=== PATIENT | male | born 1940 | race Caucasian/White ===

== ENCOUNTER 2021-01-14 09:15 | Outpatient (REF) | payer MEDICARE, SELFPAY ==
[2021-01-14 10:28] LABS: Uric Acid 8.3 mg/dL (3.4-7.0)
== END 2021-01-14 09:16 | disposition home or self-care (01) ==
LOC: HO.LAB 09:15
PROVIDERS: PCP Internal Medicine; Visit Provider Internal Medicine
DX: M1A.9XX0 Chronic gout, unspecified, without tophus (tophi) (principal)
CPT/HCPCS: 36415; 84550

== ENCOUNTER 2021-06-02 09:50 | Outpatient (REF) | payer MEDICARE, SELFPAY ==
[2021-06-02 10:04] LABS: MANUAL DIFF FLAG NO
[2021-06-02 10:15] LABS: Basophils Percent Auto 0.5 % (0-2); Eosinophils Absolute Auto 0.2 X10*3/uL (0.0-0.4); Eosinophils Percent Auto 3.6 % (0-4); Hematocrit 45.2 % (42.0-52.0); Hemoglobin 14.7 g/dl (14.0-18.0); Imm Gran Abs Auto 0.01 X10*3/uL (0.00-0.03); Imm Gran Pct Auto 0.2 % (0.0-0.4); Lymphocytes Percent Auto 49.1 % (20-40); Mean Corpuscular HGB Conc 32.5 g/dl (31.0-36.0); Mean Corpuscular Hemoglobin 29.5 pg (27.0-33.0); Mean Corpuscular Volume 90.6 fL (80.0-98.0); Mean Platelet Volume 10.4 fL (9.4-12.4); Monocytes Absolute Auto 0.7 X10*3/uL (0.1-1.2); Monocytes Percent Auto 11.9 % (2-11); Neutrophils Absolute Auto 2.1 x10*3/uL (2.0-8.3); Neutrophils Percent Auto 34.7 % (45-73); Platelet Count 295 X10*3/uL (160-400); Red Blood Count 4.99 X10*6/uL (4.60-5.80); Red Cell Distribution Width 14.1 % (11.0-16.0); White Blood Count 6.1 X10*3/uL (4.8-10.8)
[2021-06-02 11:19] LABS: Folate 10.4 ng/mL (> or = 4.0); Vitamin B12 960 pg/mL (200-900)
[2021-06-02 11:30] LABS: Alanine Aminotransferase 17 U/L (0-40); Albumin Level 4.3 g/dL (3.5-5.0); Alkaline Phosphatase 80 U/L (39-117); Anion Gap 14 (12-20); Aspartate Amino Transferase 20 U/L (5-37); Bilirubin Total 0.5 mg/dL (0.0-1.0); Blood Urea Nitrogen 25 mg/dL (9-16); Calcium 9.8 mg/dL (8.4-10.2); Carbon Dioxide 24 mmol/L (22-29); Chloride 110 mmol/L (96-108); Cholesterol 179 mg/dL; Estimated Glomerular Filt Rate > 60; Glucose Random 100 mg/dL (60-115); HDL Cholesterol 49 mg/dL; LDL Cholesterol Calculated 110 mg/dl; Potassium 5.5 mmol/L (3.3-5.1); Sodium 142 mmol/L (135-145); Total Protein 7.7 g/dL (6.5-8.0); Triglycerides 101 mg/dL
[2021-06-02 11:42] LABS: Uric Acid 8.5 mg/dL (3.4-7.0)
[2021-06-02 12:02] LABS: Free T4 (Free Thyroxine) 1.08 ng/dL (0.71-1.85); Thyroid Stimulating Hormone 2.17 uIU/mL (0.32-4.0)
== END 2021-06-02 09:51 | disposition home or self-care (01) ==
LOC: HO.LAB 09:50
PROVIDERS: PCP Internal Medicine; Visit Provider Internal Medicine
DX: E03.9 Hypothyroidism, unspecified (principal); K21.9 Gastro-esophageal reflux disease without esophagitis; I10 Essential (primary) hypertension; E78.00 Pure hypercholesterolemia, unspecified
CPT/HCPCS: 36415; 80053; 80061; 82607; 82746; 84439; 84443; 84550; 85025

== ENCOUNTER 2021-06-30 09:42 | Outpatient (REF) | payer MEDICARE, SELFPAY ==
[2021-06-30 11:07] LABS: Anion Gap 11 (12-20); Blood Urea Nitrogen 21 mg/dL (9-16); Calcium 9.7 mg/dL (8.4-10.2); Carbon Dioxide 26 mmol/L (22-29); Chloride 109 mmol/L (96-108); Estimated Glomerular Filt Rate 51; Glucose Random 93 mg/dL (60-115); Sodium 141 mmol/L (135-145)
== END 2021-06-30 09:43 | disposition home or self-care (01) ==
LOC: HO.LAB 09:42
PROVIDERS: PCP Internal Medicine; Visit Provider Internal Medicine
DX: E87.5 Hyperkalemia (principal)
CPT/HCPCS: 36415; 80048

== ENCOUNTER 2022-05-12 10:24 | Outpatient (REF) | payer MEDICARE, SELFPAY ==
[2022-05-12 10:41] LABS: MANUAL DIFF FLAG NO
[2022-05-12 10:46] LABS: Basophils Percent Auto 0.6 % (0-2); Eosinophils Absolute Auto 0.2 X10*3/uL (0.0-0.4); Eosinophils Percent Auto 2.9 % (0-4); Hematocrit 44.3 % (42.0-52.0); Hemoglobin 14.3 g/dl (14.0-18.0); Imm Gran Abs Auto 0.02 X10*3/uL (0.00-0.03); Imm Gran Pct Auto 0.3 % (0.0-0.4); Lymphocytes Absolute Auto 2.6 X10*3/uL (1.2-4.9); Lymphocytes Percent Auto 39.9 % (20-40); Mean Corpuscular HGB Conc 32.3 g/dl (31.0-36.0); Mean Corpuscular Hemoglobin 29.1 pg (27.0-33.0); Mean Platelet Volume 10.1 fL (9.4-12.4); Monocytes Absolute Auto 0.8 X10*3/uL (0.1-1.2); Monocytes Percent Auto 12.3 % (2-11); Neutrophils Absolute Auto 2.9 x10*3/uL (2.0-8.3); Platelet Count 278 X10*3/uL (160-400); Red Blood Count 4.92 X10*6/uL (4.60-5.80); Red Cell Distribution Width 13.7 % (11.0-16.0); White Blood Count 6.5 X10*3/uL (4.8-10.8)
[2022-05-12 11:18] LABS: Alanine Aminotransferase 14 U/L (0-40); Albumin Level 3.9 g/dL (3.5-5.0); Alkaline Phosphatase 77 U/L (39-117); Anion Gap 11 (12-20); Aspartate Amino Transferase 22 U/L (5-37); Bilirubin Total 0.4 mg/dL (0.0-1.0); Blood Urea Nitrogen 18 mg/dL (9-16); Calcium 9.3 mg/dL (8.4-10.2); Carbon Dioxide 27 mmol/L (22-29); Chloride 107 mmol/L (96-108); Cholesterol 180 mg/dL; Estimated Glomerular Filt Rate 44; Glucose Random 112 mg/dL (60-115); HDL Cholesterol 49 mg/dL; LDL Cholesterol Calculated 101 mg/dl; Potassium 5.1 mmol/L (3.3-5.1); Sodium 140 mmol/L (135-145); Total Protein 7.5 g/dL (6.5-8.0); Triglycerides 151 mg/dL; Uric Acid 7.4 mg/dL (3.4-7.0)
[2022-05-12 11:22] LABS: Estimated Average Glucose 108 mg/dL; Hemoglobin A1c % 5.4 %
[2022-05-12 11:32] LABS: Free T4 (Free Thyroxine) 1.43 ng/dL (0.71-1.85)
[2022-05-12 12:01] LABS: Vitamin B12 1524 pg/mL (200-900)
[2022-05-12 12:06] LABS: Folate 9.3 ng/mL (> or = 4.0)
[2022-05-12 12:23] LABS: Appearance Urine Clear; Color Urine Yellow; Glucose Urine UA Negative (Negative); Leukocyte Esterase Urine Negative (Negative); Nitrite Urine Negative (Negative); PH 5.5 (5.0-9.0); Specific Gravity - Urine 1.015 (1.005-1.025); Urine Blood Negative (Negative); Urine Ketones Negative (Negative); Urine Protein Negative (Neg-Trace)
[2022-05-12 12:26] LABS: Bacteria Urine None Seen (None Seen); Hyaline Casts Urine 0-2 /LPF (0-2); RBC Urine 0-2 /HPF (0-2); Squamous Epithelial Cell Urine 0-2 /HPF (0-2); WBC Urine 0-5 /HPF (0-5)
== END 2022-05-12 10:25 | disposition home or self-care (01) ==
LOC: HO.LAB 10:24
PROVIDERS: PCP Internal Medicine; Visit Provider Internal Medicine
DX: I10 Essential (primary) hypertension (principal); M1A.9XX0 Chronic gout, unspecified, without tophus (tophi); E03.9 Hypothyroidism, unspecified; E78.00 Pure hypercholesterolemia, unspecified; R73.01 Impaired fasting glucose
CPT/HCPCS: 36415; 80053; 80061; 81001; 82607; 82746; 83036; 84439; 84443; 84550; 85025

== ENCOUNTER 2022-12-20 10:16 | Outpatient (REF) | payer MEDICARE, SELFPAY ==
[2022-12-20 11:37] LABS: Alanine Aminotransferase 11 U/L (0-40); Albumin Level 3.6 g/dL (3.5-5.0); Alkaline Phosphatase 68 U/L (39-117); Anion Gap 10 (12-20); Aspartate Amino Transferase 16 U/L (5-37); Bilirubin Total 0.6 mg/dL (0.0-1.0); Blood Urea Nitrogen 23 mg/dL (9-16); Calcium 8.9 mg/dL (8.4-10.2); Carbon Dioxide 24 mmol/L (22-29); Chloride 111 mmol/L (96-108); Estimated Glomerular Filt Rate 50; Glucose Random 105 mg/dL (60-115); Potassium 5.1 mmol/L (3.3-5.1); Sodium 140 mmol/L (135-145); Total Protein 6.7 g/dL (6.5-8.0)
== END 2022-12-20 10:17 | disposition home or self-care (01) ==
LOC: HO.LAB 10:16
PROVIDERS: PCP Internal Medicine; Visit Provider Internal Medicine
DX: N28.9 Disorder of kidney and ureter, unspecified (principal)
CPT/HCPCS: 36415; 80053

== ENCOUNTER 2023-04-01 14:50 | Outpatient (AMB) | payer MEDICARE, SELFPAY ==
[2023-04-01 14:54] VITALS: BP 146/62; PULSE 72; O2SAT 98; BMI 24.2
--- NOTE | 2023-04-01 14:54 | MHC.PC.OV ---
Vital Signs 04/01/23 14:54 Height 5 ft 9 in Weight 164 lb BMI 24.2 BP 146/62 H Blood Pressure Location Lt brachial Position Sitting Pulse 72 Pulse Source Pulse Oximeter Pulse Oximetry (%) 98 Oxygen Delivery Method Room Air Intake Visit Reasons: f/u gout [employer] Brake Coupler: Not Required per policy Accompanied by: Self / Same As Patient Allergies lisinopril Allergy (Unknown, Verified 04/01/23 14:55) hyperkalemia Medication List - Last Reconciled 04/01/23 by Zenon Leal MD allopurinol 300 mg PO DAILY 30 days cholecalciferol (vitamin D3) 25 mcg PO DAILY colchicine (gout) 0.6 mg PO DAILY cyanocobalamin (vitamin B-12) 1,000 mcg PO DAILY levothyroxine 88 mcg PO DAILY prednisone 4 tabs QD x 2 days then 3 tabs QD x 2 days then 2 tabs Qd x 2 days then 1 tab QD x 2 days PO daily; Tobacco use date assessed: 10/11/22 Fall risk assessment: No Falls in past year Last assessed Fall Risk: 04/01/23 Dental Screening Dental Screen Date: 04/01/23 Did you have a dental visit in the last 12 months?: Yes Did you have a dental problem in the last 6 months where you did not have access to dental care?: No Was dental information given to patient?: Patient has dentist HPI f/u gout HPI Details 83-year-old male with renal insufficiency impaired glucose tolerance GERD hypertension hypothyroid last seen in January 2023 complained of some left ankle pain. Conservative management advised patient is here for follow-up [facility], [facility] Medical History Pernicious anemia Post herpetic neuralgia GERD (gastroesophageal reflux disease) Melanoma Hypertension Vitamin D deficiency Gout Hypothyroid Surgical History History of tonsillectomy Family History Father No problems noted. Mother Diabetes Hypertension CVD (cardiovascular disease) Social History Housing: House Alcohol intake: current Alcohol intake frequency: 0-2 drinks per day Patient Tobacco Use Status: Never used Tobacco e-Cigarette/Vaping Use: Never Used Second Hand Smoke Exposure: No service: No Current occupational status: retired Cognitive needs: No Hearing needs: Yes Vision needs: Yes Questionnaire PHQ-9 Over the last 2 weeks, how often have you been bothered by any of the following problems? 1. Little interest or pleasure in doing things: not at all 2. Feeling down, depressed, or hopeless: not at all 3. Trouble falling or staying asleep, or sleeping too much: not at all 4. Feeling tired or having little energy: not at all 5. Poor appetite or overeating: not at all 6. Feeling bad about yourself - or that you are a failure or have let yourself or your family down: not at all 7. Trouble concentrating on things, such as reading the newspaper or watching television: not at all 8. Moving or speaking so slowly that other people could have noticed. Or the opposite - being so fidgety or restless that you have been moving around a lot more than usual: not at all 9. Thoughts that you would be better off or of hurting yourself in some way: not at all Total score: 0 Depression Screening Interpretation: Negative Source: Developed by Drs. Jose Solano, Eyad Gordon and colleagues, with an educational sulema from [employer]. Thrive Questionnaire Date Thrive assessed: 10/11/22 AUDIT C Alcohol Use Questionnaire (AUDIT-C) 1. How often do you have a drink containing alcohol?: 4 or more times a week 2. How many drinks containing alcohol do you have on a typical day when you are drinking?: 1 or 2 3. How often do you have six or more drinks on one occasion?: Never Total Score: 4 STEPHIE-7 AMB Questionnaire STEPHIE-7 Date STEPHIE - 7 assessed: 10/11/22 Source: Developed by Drs. Jose Solano, Eyad Gordon and colleagues, with an educational sulema from [employer]. Physical exam (Primary Care) Vital Signs: Last Vital Signs Pulse 72 04/01/23 14:54 BP 146/62 H 04/01/23 14:54 Pulse Ox 98 04/01/23 14:54 Oxygen Delivery Method Room Air 09/22/23 14:54 Next steps: swelling and rednesson the R big toe metatarsal BMI result Body Mass Index 24.2 Tobacco/Smoking Status: Tobacco use Status Tobacco use date assessed 10/11/22 04/01/23 14:58 Patient Tobacco Use Status Never used Tobacco 04/01/23 14:58 e-Cigarette/Vaping Use Never Used 04/01/23 14:58 PHQ-9: PHQ-9 Score PHQ-9: Total score 0 04/01/23 18:54 Depression Screening Interpretation: Negative Thrive Assessment: Date of Thrive Assessment Date Thrive assessed 10/11/22 04/01/23 14:58 Const General: alert; No acute distress Eyes Conjunctivae: conjunctivae normal Resp Auscultation: clear to auscultation bilaterally Cardio Rate: regular rate Rhythm: regular rhythm GI Inspection: Yes normal to inspection Extrem General: Yes normal to inspection and No edema Assessment and Plan Assessment & Plan (1) Renal insufficiency: Code(s): N28.9 - Disorder of kidney and ureter, unspecified Plan: Keep well hydrated avoid NSAIDs (2) Impaired fasting blood sugar: Code(s): R73.01 - Impaired fasting glucose Plan: Decrease the amount of carbohydrate intake, pasta, bread, rice and potatoes are all sugar and that is aside from all the sweet stuff, remember that fruits are good but they are Sweet also. (3) Gout: Code(s): M10.9 - Gout, unspecified Qualifiers: Chronicity: chronic Gout etiology: unspecified cause Gout site: unspecified site Presence of tophus: without tophus Qualified Code(s): M1A.9XX0 - Chronic gout, unspecified, without tophus (tophi) Plan: Low purine diet, keep well hydrated (4) GERD (gastroesophageal reflux disease): Code(s): K21.9 - Gastro-esophageal reflux disease without esophagitis Qualifiers: Esophagitis presence: without esophagitis Qualified Code(s): K21.9 - Gastro-esophageal reflux disease without esophagitis Plan: Avoid the foods that causes that usually spicy foods, tomato products, juices, coffee, soda and foods that your sensitive to. After eating do not lie down, allow 3-4 hours before in lie down. And keep the head of bed above 30 degrees to avoid the acid from going up. (5) Hypothyroid: Code(s): E03.9 - Hypothyroidism, unspecified Qualifiers: Hypothyroidism type: acquired Qualified Code(s): E03.9 - Hypothyroidism, unspecified Plan: Continue with the thyroid medication (6) Podagra: Comment: R big toe Code(s): M10.9 - Gout, unspecified Orders: Referrals Rheumatology Referral M10.9 - Gout, unspecified Medications: Changed From allopurinol 100 mg PO DAILY 21 days 21 tabs 0RF M1A.9XX0 - Chronic gout, unspecified, without tophus (tophi) To allopurinol 300 mg PO DAILY 30 tabs 2RF 30 days M1A.9XX0 - Chronic gout, unspecified, without tophus (tophi) Refilled prednisone 4 tabs QD x 2 days then 3 tabs QD x 2 days then 2 tabs Qd x 2 days then 1 tab QD x 2 days PO daily; 20 tabs 0RF J45.909 - Unspecified asthma, uncomplicated, M1A.9XX0 - Chronic gout, unspecified, without tophus (tophi) Resumed colchicine (gout) 0.6 mg PO DAILY 30 tabs 2RF M1A.9XX0 - Chronic gout, unspecified, without tophus (tophi) colchicine (gout) 0.6 mg PO DAILY 30 tabs 2RF M1A.9XX0 - Chronic gout, unspecified, without tophus (tophi) Coding Level of Care Code Est Pt Level 4 (41684) Diagnoses Renal insufficiency N28.9 Impaired fasting blood sugar R73.01 Chronic gout without tophus, unspecified cause, unspecified site M1A.9XX0 Chronicity: chronic Gout etiology: unspecified cause Gout site: unspecified site Presence of tophus: without tophus Gastroesophageal reflux disease without esophagitis K21.9 Esophagitis presence: without esophagitis Acquired hypothyroidism E03.9 Hypothyroidism type: acquired Podagra M10.9
== END 2023-04-01 15:29 | disposition home or self-care (01) ==
PROVIDERS: PCP Internal Medicine; Visit Provider Internal Medicine
DX: K21.9 Gastro-esophageal reflux disease without esophagitis (principal); N28.9 Disorder of kidney and ureter, unspecified; E03.9 Hypothyroidism, unspecified; R73.01 Impaired fasting glucose; M1A.9XX0 Chronic gout, unspecified, without tophus (tophi); M10.9 Gout, unspecified
CPT/HCPCS: 99214

== ENCOUNTER 2023-07-05 14:40 | Outpatient (AMB) | payer MEDICARE, SELFPAY ==
[2023-07-05 14:49] VITALS: BP 148/70; PULSE 98; TEMP 36.6; O2SAT 99; BMI 25.0
--- NOTE | 2023-07-05 14:49 | A.OFFVIS_ITS ---
Intake Vital Signs 07/05/23 14:49 Height 5 ft 9 in Weight 169 lb 5.04 oz BMI 25.0 BP 148/70 H Blood Pressure Location Lt brachial Position Sitting Pulse 98 Pulse Source Pulse Oximeter Temp 97.9 F Temp Source Skin Pulse Oximetry (%) 99 Oxygen Delivery Method Room Air Intake Visit Reasons: Gout Intake Note: New pt presents today for Gout consult, referred by PCP Dr Leal. Pain located on right great toe x 3 wks. Has received gout tx. Attraction Attendant Required: No Accompanied by: Self / Same As Patient Allergies lisinopril Allergy (Unknown, Verified 07/05/23 14:49) hyperkalemia Medication List - Last Reconciled 07/05/23 by Dawna Allison MD cholecalciferol (vitamin D3) 25 mcg PO DAILY cyanocobalamin (vitamin B-12) 1,000 mcg PO DAILY diclofenac sodium 1% (Voltaren Arthritis Pain) 4 grams topical QID levothyroxine 88 mcg PO DAILY HPI HPI Comments History of Present Illness Details This is an 83-year-old male who is referred by his PCP for gout evaluation. He states that he had his 1st gout attack affecting his left big toe last year which treated. Had another gout attack March of this year and was prescribed allopurinol, prednisone and colchicine. Stated that he took allopurinol and colchicine for about 30 days. Has not had any gout flare-up since. He is unaware of any family history of gout. Denies any history of kidney stones. Patient rarely consumes any alcohol. He has no complaints today [facility] Medical History Pernicious anemia Post herpetic neuralgia GERD (gastroesophageal reflux disease) Melanoma Hypertension Vitamin D deficiency Gout Hypothyroid Surgical History History of tonsillectomy Family History (Updated 07/05/23 @ 15:11 by BENJAMIN Forman) Father No problems noted. Mother Diabetes Hypertension CVD (cardiovascular disease) Social History Housing: House Alcohol intake: current Alcohol intake frequency: 0-2 drinks per day Patient Tobacco Use Status: Never used Tobacco e-Cigarette/Vaping Use: Never Used Second Hand Smoke Exposure: No service: No Current occupational status: retired Cognitive needs: No Hearing needs: Yes Vision needs: Yes Review of Systems ENT Reports hearing loss GI Reports heartburn Physical Exam Vital Signs: Last Vital Signs Temp 97.9 F 07/05/23 14:49 Pulse 98 07/05/23 14:49 BP 148/70 H 07/05/23 14:49 Pulse Ox 99 07/05/23 14:49 Oxygen Delivery Method Room Air 07/05/23 14:49 BMI result Body Mass Index 25.0 Const General: cooperative, healthy appearing and comfortable Nutritional Appearance: average body habitus Orientation/consciousness: patient oriented x3 Limitations: no limitations HEENT Head: Yes normocephalic and Yes atraumatic Mouth: moist mucous membranes Resp Effort & Inspection: normal respiratory effort and able to speak in complete sentences Skin General skin exam: dry skin Neuro General: patient oriented x3 Extrem Other: No tophi noted 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 Patient had his 1st gout attack last year and had another attack this year. There is no tophi on exam. No history of kidney stones. Patient still does not fulfill criteria for urate lowering therapy. We discussed gout, its genetic predisposition and predisposing factors. We discussed low purine diet. Advised patient to consider using tart caban extract and drinking lemon water daily. Avoiding alcohol consumption Advised patient to call the clinic if he develops a gout flare-up, and we will discuss treatment then Plan I spent 32 minutes reviewing patient's chart, evaluating patient, counseling patient and documenting in the chart Coding Level of Care Code New Pt Level 3 (10629) Diagnoses Chronic gout without tophus, unspecified cause, unspecified site M1A.9XX0 Gout site: unspecified site Gout etiology: unspecified cause Chronicity: chronic Presence of tophus: without tophus
== END 2023-07-05 15:46 | disposition home or self-care (01) ==
PROVIDERS: PCP Internal Medicine; Visit Provider Student in an Organized Health Care Education/Training Program
DX: M1A.9XX0 Chronic gout, unspecified, without tophus (tophi) (principal)
CPT/HCPCS: 99203

== ENCOUNTER → 2023-07-05 14:40 | Outpatient (BNVA) | payer MEDICARE, SELFPAY | PROVIDERS: PCP Internal Medicine; Visit Provider Student in an Organized Health Care Education/Training Program | DX: M1A.9XX0 Chronic gout, unspecified, without tophus (tophi) (principal) | CPT/HCPCS: 99202 ==

== ENCOUNTER 2023-08-11 09:52 | Outpatient (AMB) | payer MEDICARE, SELFPAY ==
--- NOTE | 2023-08-11 09:58 | MHC.PC.OV ---
Vital Signs 08/11/23 09:59 Height 5 ft 9 in Weight 168 lb 0.2 oz BMI 24.8 BP 140/62 H Blood Pressure Location Lt brachial Position Sitting Pulse 77 Pulse Source Pulse Oximeter Pulse Oximetry (%) 99 Oxygen Delivery Method Room Air Intake Visit Reasons: Follow up Alarm Signal Operator Required: No Allergies lisinopril Allergy (Unknown, Verified 08/11/23 10:02) hyperkalemia Tobacco use date assessed: 08/11/23 Fall risk assessment: No Falls in past year Last assessed Fall Risk: 08/11/23 Dental Screening Dental Screen Date: 08/11/23 Did you have a dental visit in the last 12 months?: Yes Did you have a dental problem in the last 6 months where you did not have access to dental care?: No Was dental information given to patient?: Patient has dentist HPI Follow up HPI Details 83-year-old male with a history of renal insufficiency impaired glucose tolerance gout GERD hypothyroidism coming in for follow-up. Last seen in March 2023. Consulted Rheumatology for pain on the right great toe patient was advised type caban extract as does not fulfill criteria for urate lowering therapy. so far has been doing good- advised joan juice or water with lemon. BP at home is good [facility] Medical History Pernicious anemia Post herpetic neuralgia GERD (gastroesophageal reflux disease) Melanoma Hypertension Vitamin D deficiency Gout Hypothyroid Surgical History History of tonsillectomy Family History (Updated 07/05/23 @ 15:11 by BENJAMIN Saunders) Father No problems noted. Mother Diabetes Hypertension CVD (cardiovascular disease) Social History Housing: House Alcohol intake: current Alcohol intake frequency: 0-2 drinks per day Patient Tobacco Use Status: Never used Tobacco e-Cigarette/Vaping Use: Never Used Second Hand Smoke Exposure: No service: No Current occupational status: retired Cognitive needs: No Hearing needs: Yes Vision needs: Yes Questionnaire Thrive Questionnaire Date Thrive assessed: 08/11/23 AUDIT C Alcohol Use Questionnaire (AUDIT-C) 1. How often do you have a drink containing alcohol?: 4 or more times a week 2. How many drinks containing alcohol do you have on a typical day when you are drinking?: 1 or 2 3. How often do you have six or more drinks on one occasion?: Never Total Score: 4 STEPHIE-7 AMB Questionnaire STEPHIE-7 Date STEPHIE - 7 assessed: 08/11/23 Source: Developed by Drs. Jose Solano, Raven Haywood, Eyad Diaz and colleagues, with an educational sulema from [employer]. Physical exam (Primary Care) Vital Signs: Last Vital Signs Pulse 77 08/11/23 09:59 BP 140/62 H 08/11/23 09:59 Pulse Ox 99 08/11/23 09:59 Oxygen Delivery Method Room Air 08/11/23 09:59 BMI result Body Mass Index 24.8 Tobacco/Smoking Status: Tobacco use Status Tobacco use date assessed 08/11/23 08/11/23 09:59 Patient Tobacco Use Status Never used Tobacco 08/11/23 09:59 e-Cigarette/Vaping Use Never Used 08/11/23 09:59 Thrive Assessment: Date of Thrive Assessment Date Thrive assessed 08/11/23 08/11/23 09:59 Const General: alert; No acute distress Eyes Conjunctivae: conjunctivae normal Resp Auscultation: clear to auscultation bilaterally Cardio Rate: regular rate Rhythm: regular rhythm GI Inspection: Yes normal to inspection Extrem General: Yes normal to inspection and No edema Assessment and Plan Assessment & Plan (1) Podagra: Comment: R big toe Code(s): M10.9 - Gout, unspecified Plan: Patient has met with Rheumatology and no indications for urate lowering medication advised tart caban/ lemon juice patient has been doing good (2) Renal insufficiency: Code(s): N28.9 - Disorder of kidney and ureter, unspecified Plan: Keep well hydrated avoid NSAIDs by mouth. Will repeat blood work (3) Impaired fasting blood sugar: Code(s): R73.01 - Impaired fasting glucose Plan: Decrease the amount of carbohydrate intake, pasta, bread, rice and potatoes are all sugar and that is aside from all the sweet stuff, remember that fruits are good but they are Sweet also. (4) GERD (gastroesophageal reflux disease): Code(s): K21.9 - Gastro-esophageal reflux disease without esophagitis Qualifiers: Esophagitis presence: without esophagitis Qualified Code(s): K21.9 - Gastro-esophageal reflux disease without esophagitis Plan: Avoid the foods that causes that usually spicy foods, tomato products, juices, coffee, soda and foods that your sensitive to. After eating do not lie down, allow 3-4 hours before in lie down. And keep the head of bed above 30 degrees to avoid the acid from going up. (5) Hypothyroid: Code(s): E03.9 - Hypothyroidism, unspecified Qualifiers: Hypothyroidism type: acquired Qualified Code(s): E03.9 - Hypothyroidism, unspecified Plan: Continue with thyroid medication Orders: Orders Complete Blood Count Auto Diff Today N28.9 - Disorder of kidney and ureter, unspecified Comprehensive Met. Panel Today N28.9 - Disorder of kidney and ureter, unspecified Free T4 (Free Thyroxine) Today N28.9 - Disorder of kidney and ureter, unspecified Thyroid Stimulating Hormone Today N28.9 - Disorder of kidney and ureter, unspecified Lipid Panel Today E78.00 - Pure hypercholesterolemia, unspecified, N28.9 - Disorder of kidney and ureter, unspecified Hemoglobin A1c Today R73.01 - Impaired fasting glucose Vitamin B12 and Folate Today N28.9 - Disorder of kidney and ureter, unspecified UA w Microscopic Today R73.01 - Impaired fasting glucose Uric Acid Today M1A.9XX0 - Chronic gout, unspecified, without tophus (tophi) Coding Level of Care Code Est Pt Level 4 (70139) Diagnoses Podagra M10.9 Renal insufficiency N28.9 Impaired fasting blood sugar R73.01 Gastroesophageal reflux disease without esophagitis K21.9 Esophagitis presence: without esophagitis Acquired hypothyroidism E03.9 Hypothyroidism type: acquired
[2023-08-11 09:59] VITALS: BP 140/62; PULSE 77; O2SAT 99; BMI 24.8
== END 2023-08-11 10:35 | disposition home or self-care (01) ==
PROVIDERS: PCP Internal Medicine; Visit Provider Internal Medicine
DX: M10.9 Gout, unspecified (principal); N28.9 Disorder of kidney and ureter, unspecified; R73.01 Impaired fasting glucose; K21.9 Gastro-esophageal reflux disease without esophagitis; E03.9 Hypothyroidism, unspecified
CPT/HCPCS: 99214

== ENCOUNTER 2023-11-15 09:50 | Outpatient (REF) | payer MEDICARE, SELFPAY ==
[2023-11-15 10:06] LABS: MANUAL DIFF FLAG NO
[2023-11-15 10:29] LABS: Basophils Percent Auto 0.5 % (0-2); Eosinophils Absolute Auto 0.2 X10*3/uL (0.0-0.4); Hematocrit 42.9 % (42.0-52.0); Hemoglobin 13.8 g/dl (14.0-18.0); Imm Gran Abs Auto 0.02 X10*3/uL (0.00-0.03); Imm Gran Pct Auto 0.3 % (0.0-0.4); Lymphocytes Absolute Auto 3.1 X10*3/uL (1.2-4.9); Lymphocytes Percent Auto 40.9 % (20-40); Mean Corpuscular HGB Conc 32.2 g/dl (31.0-36.0); Mean Corpuscular Hemoglobin 28.8 pg (27.0-33.0); Mean Corpuscular Volume 89.6 fL (80.0-98.0); Mean Platelet Volume 10.4 fL (9.4-12.4); Monocytes Absolute Auto 0.9 X10*3/uL (0.1-1.2); Monocytes Percent Auto 11.7 % (2-11); Neutrophils Absolute Auto 3.3 x10*3/uL (2.0-8.3); Neutrophils Percent Auto 43.6 % (45-73); Platelet Count 248 X10*3/uL (160-400); Red Blood Count 4.79 X10*6/uL (4.60-5.80); Red Cell Distribution Width 14.6 % (11.0-16.0); White Blood Count 7.5 X10*3/uL (4.8-10.8)
[2023-11-15 10:34] LABS: Estimated Average Glucose 111 mg/dL; Hemoglobin A1c % 5.5 % (<6.0)
[2023-11-15 11:10] LABS: Appearance Urine Clear; Color Urine Yellow; Glucose Urine UA Negative (Negative); Leukocyte Esterase Urine Negative (Negative); Nitrite Urine Negative (Negative); Urine Blood Negative (Negative); Urine Ketones Negative (Negative); Urine Protein Negative (Neg-Trace)
[2023-11-15 11:14] LABS: Alanine Aminotransferase 10 U/L (0-40); Albumin Level 3.8 g/dL (3.5-5.0); Alkaline Phosphatase 80 U/L (39-117); Anion Gap 13 (12-20); Aspartate Amino Transferase 16 U/L (5-37); Bilirubin Total 0.6 mg/dL (0.0-1.0); Blood Urea Nitrogen 21 mg/dL (9-16); Calcium 9.4 mg/dL (8.4-10.2); Carbon Dioxide 24 mmol/L (22-29); Chloride 110 mmol/L (96-108); Cholesterol 153 mg/dL (<200); Estimated Glomerular Filt Rate 45; Free T4 (Free Thyroxine) 1.17 ng/dL (0.71-1.85); Glucose Random 92 mg/dL (60-115); HDL Cholesterol 47 mg/dL (>40); LDL Cholesterol Calculated 89 mg/dL (<100); Potassium 4.5 mmol/L (3.3-5.1); Sodium 142 mmol/L (135-145); Thyroid Stimulating Hormone 6.09 uIU/mL (0.32-4.0); Total Protein 7.4 g/dL (6.5-8.0); Triglycerides 87 mg/dL (<150); Uric Acid 8.5 mg/dL (3.4-7.0)
[2023-11-15 11:15] LABS: Bacteria Urine None Seen (None Seen); Hyaline Casts Urine 0-2 /LPF (0-2); RBC Urine 0-2 /HPF (0-2); Squamous Epithelial Cell Urine 0-2 /HPF (0-2); WBC Urine 0-5 /HPF (0-5)
[2023-11-15 11:30] LABS: Folate 8.1 ng/mL (> or = 4.0); Vitamin B12 > 2000 pg/mL (200-900)
== END 2023-11-15 09:51 | disposition home or self-care (01) ==
LOC: HO.LAB 09:50
PROVIDERS: PCP Internal Medicine; Visit Provider Internal Medicine
DX: N28.9 Disorder of kidney and ureter, unspecified (principal); E78.00 Pure hypercholesterolemia, unspecified; R73.01 Impaired fasting glucose; M1A.9XX0 Chronic gout, unspecified, without tophus (tophi)
CPT/HCPCS: 36415; 80053; 80061; 81001; 82607; 82746; 83036; 84439; 84443; 84550; 85025

== ENCOUNTER 2023-12-22 13:26 | Outpatient (AMB) | payer MEDICARE, SELFPAY ==
[2023-12-22 13:43] VITALS: BP 120/68; PULSE 67; O2SAT 98; BMI 25.2
--- NOTE | 2023-12-22 13:43 | AM.OFFVISMDC ---
Intake Vital Signs 12/22/23 13:43 Height 5 ft 9 in Weight 171 lb BMI 25.2 BP 120/68 Blood Pressure Location Lt brachial Position Sitting Pulse 67 Pulse Source Pulse Oximeter Pulse Oximetry (%) 98 Oxygen Delivery Method Room Air Intake Visit Reasons: SAWV Allergies lisinopril Allergy (Unknown, Verified 12/22/23 13:44) hyperkalemia Medication List - Last Reconciled 12/22/23 by Zenon Leal MD cholecalciferol (vitamin D3) 25 mcg PO DAILY cyanocobalamin (vitamin B-12) 1,000 mcg PO DAILY diclofenac sodium 1% (Voltaren Arthritis Pain) 4 grams topical QID levothyroxine 88 mcg PO DAILY HPI SAWV HPI Details 83-year-old male with gout, renal insufficiency impaired glucose tolerance GERD hypothyroidism coming in for an annual well visit last seen in 08/30/2023. COUNT INCLUDES [facility] Medical History Pernicious anemia Post herpetic neuralgia GERD (gastroesophageal reflux disease) Melanoma Hypertension Vitamin D deficiency Gout Hypothyroid Surgical History History of tonsillectomy Family History (Updated 07/05/23 @ 15:11 by BENJAMIN Saunders) Father No problems noted. Mother Diabetes Hypertension CVD (cardiovascular disease) Social History (Updated 12/22/23 @ 14:08 by Zenon Leal MD) Housing: House Alcohol intake: current Alcohol intake frequency: 0-2 drinks per day Comment: once a week 1 drink Patient Tobacco Use Status: Never used Tobacco e-Cigarette/Vaping Use: Never Used Second Hand Smoke Exposure: No service: No Current occupational status: retired Cognitive needs: No Hearing needs: Yes Vision needs: Yes Questionnaire Medicare Wellness Checkup What is your age?: 80 or older What gender do you identify with?: male During the past 4 weeks, how much have you been bothered by emotional problems such as feeling anxious, depressed, irritable, sad or downhearted, and blue?: not at all During the past 4 weeks, has your physical & emotional health limited your social activities with family, friends, neighbors, or groups?: not at all During the past 4 weeks, how much bodily pain have you generally had?: no pain During the past 4 weeks, was someone available to help you if you needed & wanted help?: yes, as much as I wanted During the past 4 weeks, what was the hardest physical activity you could do for at least 2 minutes?: light Can you get to places out of walking distance without help? (For eg., can you travel alone on buses, taxis or drive your car?): Yes Can you go shopping for groceries or clothes without someone's help?: Yes Can you prepare your own meals?: Yes Can you do your housework without help?: Yes Because of any health problems, do you need the help of another person with your personal care needs such as eating, bathing, dressing or getting around the house?: No Can you handle your own money without help?: Yes During the past 4 weeks, how would you rate your health in general?: good During the past 4 weeks how have things been going for you?: pretty well Are you having difficulties driving your car?: no Do you always fasten your seat belt when you are in a car?: yes, usually During past 4 weeks, have you been bothered by the following: never: Falling or dizzy when standing up, Sexual problems?, Trouble eating well?, Teeth or denture problems? and Problems using the telephone? and seldom: Tiredness or fatigue? Have you fallen 2 or more times in the past year?: No Are you afraid of falling?: No Are you a smoker?: no During the past 4 weeks, how many drinks of wine, beer, or other alcoholic beverages did you have?: 1 drink or less per week Do you exercise for about 20 minutes 3 or more times a week?: no, I usually do not exercise this much Have you been given information to help with the following?: no: Hazards in your house that might hurt you? and no: Keeping track of your medications? How often do you have trouble taking medicines the way you have been told to take them?: I always take medicine as prescribed How confident are you that you can control & manage most of your health problems?: somewhat confident What is your race?: White PHQ-9 Over the last 2 weeks, how often have you been bothered by any of the following problems? 1. Little interest or pleasure in doing things: not at all 2. Feeling down, depressed, or hopeless: not at all 3. Trouble falling or staying asleep, or sleeping too much: not at all 4. Feeling tired or having little energy: not at all 5. Poor appetite or overeating: not at all 6. Feeling bad about yourself - or that you are a failure or have let yourself or your family down: not at all 7. Trouble concentrating on things, such as reading the newspaper or watching television: not at all 8. Moving or speaking so slowly that other people could have noticed. Or the opposite - being so fidgety or restless that you have been moving around a lot more than usual: not at all 9. Thoughts that you would be better off or of hurting yourself in some way: not at all Total score: 0 Depression Screening Interpretation: Negative Depression Screening Done: Yes Source: Developed by Drs. Jose Solano, Raven Haywood, Eyad Diaz and colleagues, with an educational sulema from [email or web address]. Thrive Questionnaire Date Thrive assessed: 12/22/23 I am a: Patient What is your living situation today?: I have a steady place to live Within the past 12 months, did the food you bought not last and you didn't have the money to get more?: Never true Within the past 12 months, did you worry whether your food would run out before you got money to buy more?: Never true Do you have trouble paying for medicines?: No Do you have trouble getting transportation to medical appointments?: No Do you have trouble paying your heating and electricity bill?: No Do you have trouble taking care of your child, family member or friend?: No Do you have trouble with day-to-day activities such as bathing, preparing meals, shopping, managing finances, etc.?: No Are you currently unemployed and looking for a job?: No Are you interested in more education?: No Currently or been in a relationship where the following occur: no concerns reported THRIVE Score: 0 STEPHIE-7 AMB Questionnaire STEPHIE-7 Date STEPHIE - 7 assessed: 12/22/23 Feeling nervous, anxious, or on edge: 0 = Not at all Not being able to stop or control worryin = Not at all Worrying too much about different things: 0 = Not at all Trouble relaxin = Not at all Being so restless that it is hard to sit still: 0 = Not at all Becoming easily annoyed or irritable: 0 = Not at all Feeling afraid as if something awful might happen: 0 = Not at all Total STEPHIE-7 score (0-4 normal; 5-9 mild; 10-14 moderate; 15-21 severe): 0 Source: Developed by Drs. Jose Solano, Raven Haywood, Eyad Diaz and colleagues, with an educational sulema from [email or web address]. Review of Systems Const Denies poor appetite and Denies weakness Eyes Denies no additional complaints ENT Reports Normal hearing present, Denies dizziness, Denies nasal congestion, Denies tinnitus and Denies sore throat Card Denies chest pain, Denies syncope, Denies rapid heart rate and Denies dyspnea Resp Denies cough and Denies dyspnea GI Denies change in stool character, Reports constipation, Denies diarrhea, Denies nausea and Denies vomiting Denies dysuria and Denies urinary frequency Neuro Reports Normal hearing present, Denies confusion, Denies dizziness, Denies syncope and Denies weakness Psych Denies confusion Physical Exam Vital Signs: Last Vital Signs Pulse 67 12/22/23 13:43 BP 120/68 12/22/23 13:43 Pulse Ox 98 12/22/23 13:43 Oxygen Delivery Method Room Air 12/22/23 13:43 BMI result Body Mass Index 25.2 Const General: No confusion Orientation/consciousness: No confusion HEENT Head: Yes normocephalic Ears: external ears normal and TM's normal bilaterally Face and sinus: Yes normal facial exam Mouth: moist mucous membranes Throat: Yes tonsils normal Eyes Conjunctivae: conjunctivae normal Pupils: Equal, round and reactive pupils present and Pupil accommodation reflex normal Direct Ophthalmoscopy: normal light reflex Neck Neck: No lymphadenopathy Thyroid: Thyroid normal Chest Chest palpation & inspection: normal inspection of the chest Resp Effort & Inspection: normal respiratory effort and no audible wheezes Auscultation: clear to auscultation bilaterally, no crackles, no wheezes and lung sounds not diminished Cardio Rate: regular rate Rhythm: regular rhythm Peripheral pulses: radial pulses present and dorsalis pedis present GI Other: guaiac negative prostate N R inguinal bulge Palpation (GI): no masses Auscultation: normal bowel sounds and normoactive bowel sounds Rectal Exam - Male: Yes deferred Skin General skin exam: no rashes or lesions noted Rashes: no rashes Neuro General: No confusion Cranial nerves: Yes Equal, round and reactive pupils present and Yes Normal hearing present Cognition (Neuro): normal cognition Gait exam (Neuro): Normal gait present Motor exam (neuro): 5/5 motor strength present throughout Deep tendon reflexes (DTR's): Right brachioradialis reflex intensity grade: 2+, Left brachioradialis reflex intensity grade: 2+, Right patellar reflex intensity grade: 2+ and Left patellar reflex intensity grade: 2+ Extrem General: No edema Assessment & Plan Assessment & Plan (1) Medicare annual wellness visit, subsequent: Code(s): Z00.00 - Encounter for general adult medical examination without abnormal findings Plan: Patient is advised to eat healthy, keep well hydrated, keep active and have adequate sleep. (2) Gout: Code(s): M10.9 - Gout, unspecified Qualifiers: Gout site: unspecified site Gout etiology: unspecified cause Chronicity: chronic Presence of tophus: without tophus Qualified Code(s): M1A.9XX0 - Chronic gout, unspecified, without tophus (tophi) Plan: Patient has seen Rheumatology for low purine diet keep well hydrated (3) Hypothyroid: Code(s): E03.9 - Hypothyroidism, unspecified Qualifiers: Hypothyroidism type: acquired Qualified Code(s): E03.9 - Hypothyroidism, unspecified Plan: Continue with thyroid medication (4) Hypertension: Code(s): I10 - Essential (primary) hypertension Qualifiers: Hypertension type: essential hypertension Qualified Code(s): I10 - Essential (primary) hypertension Plan: Presently on no medication blood pressure controlled (5) Impaired fasting blood sugar: Code(s): R73.01 - Impaired fasting glucose Plan: Decrease the amount of carbohydrate intake, pasta, bread, rice and potatoes are all sugar and that is aside from all the sweet stuff, remember that fruits are good but they are Sweet also. (6) Renal insufficiency: Code(s): N28.9 - Disorder of kidney and ureter, unspecified Plan: Keep well hydrated will need a repeat blood test (7) Anemia: Code(s): D64.9 - Anemia, unspecified Plan: will ff up blood work (8) Inguinal bulge: Comment: R side 12/2023 Code(s): R19.09 - Other intra-abdominal and pelvic swelling, mass and lump Plan: avoid heavy lifting Orders: Orders Free T4 (Free Thyroxine) Today N28.9 - Disorder of kidney and ureter, unspecified Ferritin Today N28.9 - Disorder of kidney and ureter, unspecified IRON PROFILE Today N28.9 - Disorder of kidney and ureter, unspecified Complete Blood Count Auto Diff 1 Day N28.9 - Disorder of kidney and ureter, unspecified Comprehensive Met. Panel Today N28.9 - Disorder of kidney and ureter, unspecified Complete Blood Count Auto Diff Today N28.9 - Disorder of kidney and ureter, unspecified Thyroid Stimulating Hormone Today N28.9 - Disorder of kidney and ureter, unspecified Reticulocyte Count Today N28.9 - Disorder of kidney and ureter, unspecified Quality Reporting (2019) Depression/Bipolar (159/160/161/177) PHQ-9: Total score: 0 Coding Level of Care Code Medicare Subsequent (G0439) Diagnoses Medicare annual wellness visit, subsequent Z00.00 Chronic gout without tophus, unspecified cause, unspecified site M1A.[id number] Gout site: unspecified site Gout etiology: unspecified cause Chronicity: chronic Presence of tophus: without tophus Acquired hypothyroidism E03.9 Hypothyroidism type: acquired Essential hypertension I10 Hypertension type: essential hypertension Impaired fasting blood sugar R73.01 Renal insufficiency N28.9 Anemia D64.9 Inguinal bulge R19.09
== END 2023-12-22 14:25 | disposition home or self-care (01) ==
PROVIDERS: PCP Internal Medicine; Visit Provider Internal Medicine
DX: Z00.00 Encounter for general adult medical examination without abnormal findings (principal); M1A.9XX0 Chronic gout, unspecified, without tophus (tophi); E03.9 Hypothyroidism, unspecified; I10 Essential (primary) hypertension; R73.01 Impaired fasting glucose; N28.9 Disorder of kidney and ureter, unspecified; D64.9 Anemia, unspecified; R19.09 Other intra-abdominal and pelvic swelling, mass and lump
CPT/HCPCS: G0439

== ENCOUNTER 2024-05-17 13:43 | Outpatient (REF) | payer MEDICARE, SELFPAY ==
[2024-05-17 14:05] LABS: MANUAL DIFF FLAG NO
[2024-05-17 14:29] LABS: Basophils Percent Auto 0.4 % (0-2); Eosinophils Absolute Auto 0.2 X10*3/uL (0.0-0.4); Eosinophils Percent Auto 2.9 % (0-4); Hematocrit 42.9 % (42.0-52.0); Hemoglobin 13.9 g/dl (14.0-18.0); Imm Gran Abs Auto 0.01 X10*3/uL (0.00-0.03); Imm Gran Pct Auto 0.1 % (0.0-0.4); Immature Retic Fraction 6.5 % (2.3-13.4); Lymphocytes Absolute Auto 3.2 X10*3/uL (1.2-4.9); Lymphocytes Percent Auto 39.2 % (20-40); Mean Corpuscular HGB Conc 32.4 g/dl (31.0-36.0); Mean Corpuscular Hemoglobin 29.1 pg (27.0-33.0); Mean Corpuscular Volume 89.9 fL (80.0-98.0); Mean Platelet Volume 10.5 fL (9.4-12.4); Monocytes Absolute Auto 0.8 X10*3/uL (0.1-1.2); Monocytes Percent Auto 10.3 % (2-11); Neutrophils Absolute Auto 3.8 x10*3/uL (2.0-8.3); Neutrophils Percent Auto 47.1 % (45-73); Platelet Count 259 X10*3/uL (160-400); Red Blood Count 4.77 X10*6/uL (4.60-5.80); Red Cell Distribution Width 14.2 % (11.0-16.0); Retic HGB Equivalent 32.9 pg (30.0-35.0); Reticulocytes Absolute 0.049 X10*6/uL (0.026-0.095); White Blood Count 8.1 X10*3/uL (4.8-10.8)
[2024-05-17 15:03] LABS: Alanine Aminotransferase 16 U/L (0-40); Albumin Level 3.9 g/dL (3.5-5.0); Alkaline Phosphatase 77 U/L (39-117); Anion Gap 14 (12-20); Aspartate Amino Transferase 24 U/L (5-37); Bilirubin Total 0.3 mg/dL (0.0-1.0); Blood Urea Nitrogen 22 mg/dL (9-16); Calcium 9.2 mg/dL (8.4-10.2); Carbon Dioxide 20 mmol/L (22-29); Chloride 111 mmol/L (96-108); Estimated Glomerular Filt Rate 54; Glucose Random 114 mg/dL (60-115); Iron 79 mcg/dL (45-160); Percent Iron Saturation 31 % (15-50); Potassium 4.1 mmol/L (3.3-5.1); Sodium 141 mmol/L (135-145); Total Iron Binding Capacity 258 mcg/dL (228-428); Total Protein 7.5 g/dL (6.5-8.0); Unsaturated Iron Binding 179 ug/dL
[2024-05-17 15:21] LABS: Ferritin 121 ng/mL (20-250); Free T4 (Free Thyroxine) 1.16 ng/dL (0.71-1.85); Thyroid Stimulating Hormone 9.24 uIU/mL (0.32-4.0)
== END 2024-05-17 13:44 | disposition home or self-care (01) ==
LOC: HO.LAB 13:43
PROVIDERS: PCP Internal Medicine; Visit Provider Internal Medicine
DX: N28.9 Disorder of kidney and ureter, unspecified (principal)
CPT/HCPCS: 36415; 80053; 82728; 83540; 84439; 84443; 85025; 85045

== ENCOUNTER 2024-06-22 11:18 | Outpatient (AMB) | payer MEDICARE, SELFPAY ==
--- NOTE | 2024-06-22 11:20 | A.OFFPC_ITS ---
Vital Signs 06/22/24 11:21 06/22/24 12:03 Height 5 ft 9 in Weight 169 lb 2 oz BMI 25.0 BP 140/70 H 138/60 Blood Pressure Location Lt brachial Lt brachial Position Sitting Sitting Pulse 67 Pulse Source Pulse Oximeter Pulse Oximetry (%) 97 Oxygen Delivery Method Room Air Intake Visit Reasons: anemia., hypothyroid Intake Note: Patient is here to follow up on Anemia, Hypothyroid. International Account Representative Required: No Audio Visual Engineer: Not Required per policy Accompanied by: Self / Same As Patient Allergies lisinopril Allergy (Unknown, Verified 06/22/24 11:21) hyperkalemia Medication List - Last Reconciled 06/22/24 by Whitney Santoro PA-C cholecalciferol (vitamin D3) 25 mcg PO DAILY cyanocobalamin (vitamin B-12) 1,000 mcg PO DAILY diclofenac sodium 1% (Voltaren Arthritis Pain) 4 grams topical QID levothyroxine 100 mcg PO DAILY Tobacco use date assessed: 06/22/24 Fall risk assessment: No Falls in past year Last assessed Fall Risk: 06/22/24 Dental Screening Dental Screen Date: 08/11/23 HPI anemia., hypothyroid HPI Details 84-year-old male with past medical histo ry gout, renal insufficiency, impaired glucose tolerance, GERD, hypothyroidism last seen by Dr. Leal December 2023 coming in for follow up. Patient states his TSH was found to be elevated on his last lab work and increased his levothyroxine to 100 mcg and has repeat blood work next week. He also mentions in the last 2 weeks he has been having acid reflux symptoms that results in chest pressure and pain as well as belching. He has been taking simethicone which she states helps but does not completely resolve the gas. He has been taking the simethicone at bedtime because previously the gas was waking him up from sleep. Typically his reflux we will not start until after dinnertime. Does endorse chest pain but denied any arm pain or numbness. No other symptoms at this time. [facility] Medical History Pernicious anemia Post herpetic neuralgia GERD (gastroesophageal reflux disease) Melanoma Hypertension Vitamin D deficiency Gout Hypothyroid Surgical History History of tonsillectomy Family History Father No problems noted. Mother Diabetes Hypertension CVD (cardiovascular disease) Social History Housing: House Alcohol intake: current Alcohol intake frequency: 0-2 drinks per day Comment: once a week 1 drink Patient Tobacco Use Status: Never used Tobacco e-Cigarette/Vaping Use: Never Used Second Hand Smoke Exposure: No service: No Current occupational status: retired Cognitive needs: No Hearing needs: Yes Vision needs: Yes Questionnaire Thrive Questionnaire Date Thrive assessed: 12/22/23 STEPHIE-7 AMB Questionnaire STEPHIE-7 Date STEPHIE - 7 assessed: 12/22/23 Source: Developed by Drs. Jose Solano, Raven Haywood, Eyad Diaz and colleagues, with an educational sulema from [employer]. Review of Systems Const Denies body aches, Denies chills, Denies fever(s), Denies headache(s) and Denies poor appetite Eyes Reports no additional complaints ENT Denies dysphagia, Denies dizziness, Denies headache(s) and Denies odynophagia Card Details: Occasional chest pain with acid reflux Denies syncope, Denies edema, Denies irregular heart rhythm, Denies lightheadedness and Denies dyspnea Resp Denies cough and Denies dyspnea GI Denies abdominal pain, Denies dysphagia, Reports dyspepsia, Reports heartburn, Denies nausea, Denies odynophagia and Denies vomiting Reports no additional complaints Musc Reports no additional complaints and Denies abnormal gait Skin/Breast Reports system reviewed and no additional complaints, except as documented Neuro Denies abnormal gait, Denies dizziness, Denies syncope and Denies headache(s) Psych Reports no additional complaints Physical exam (Primary Care) Vital Signs: Last Vital Signs Pulse 67 06/22/24 11:21 BP 138/60 06/22/24 12:03 Pulse Ox 97 06/22/24 11:21 Oxygen Delivery Method Room Air 06/22/24 11:21 BMI result Body Mass Index 25.0 Tobacco/Smoking Status: Tobacco use Status Tobacco use date assessed 06/22/24 06/22/24 11:26 Patient Tobacco Use Status Never used Tobacco 06/22/24 11:26 e-Cigarette/Vaping Use Never Used 06/22/24 11:26 Thrive Assessment: Date of Thrive Assessment Date Thrive assessed 12/22/23 06/22/24 11:26 Const General: cooperative, healthy appearing, comfortable and no acute distress Orientation/consciousness: patient oriented x3 HENMT Head: Yes normocephalic Ears: hearing grossly normal bilaterally General nose exam: Normal external nose present Eyes General: appearance normal, both eyes and all related structures Conjunctivae: conjunctivae normal Neck Neck: Yes full ROM and Yes no lymphadenopathy Resp Effort & Inspection: normal respiratory effort Auscultation: clear to auscultation bilaterally, no crackles, no rales, no rhonchi and no wheezes Cardio Rate: regular rate Rhythm: regular rhythm Skin General skin exam: no rashes or lesions noted Neuro General: patient oriented x3 Gait exam (Neuro): Normal gait present Extrem General: Yes normal to inspection, Yes full ROM and No edema Psych Affect: normal affect Attitude: cooperative Insight: Good insight present (Psych) Judgement: Good judgement present (Psych) Office Procedures EKG Details: EKG performed in office to rule out cardiac involvement relating to new onset of GERD symptoms. EKG was reviewed by myself and Dr. Navarro patient found to be in normal sinus rhythm with no evidence of ischemia. [id number], Complete Flu Questionnaire Does the patient have a severe egg allergy?: No Does the patient have severe life threatening allergies?: No Does the patient have a fever or illness today?: No Has the patient ever had Guillain-[place] Syndrome?: No Has the patient ever had any past reaction to a flu shot?: No Immunizations Fluarix Triv [id number] (PF) 45 mcg (15 mcg x 3)/0.5 mL IM syringe Performing Provider: Whitney Santoro PA-C [facility] Administered by: Cyn Lal RN on 06/22/24 11:36 Dose Route Admin Location Dispensed Lot Number Expiration Date [facility] Tower Loader Operator 0.5 mL IM Left Deltoid 0.5 mL [id number] 01/07/25 [id number] [email or web address] VIS Given Date VIS Provided VIS Publication Date 06/22/24 Single Vaccine 21 Eligibility Eligibility Date Funding Source Not [facility] Eligible 06/22/24 Private Coding Level of Care Code Est Pt Level 4 (43174) Diagnoses Anemia D64.9 Gastroesophageal reflux disease without esophagitis K21.9 Esophagitis presence: without esophagitis Essential hypertension I10 Hypertension type: essential hypertension Acquired hypothyroidism E03.9 Hypothyroidism type: acquired CPT Codes EKG - CPT: 47821-[id number], Complete ([id number]) Assessment & Plan Assessment & Plan (1) Anemia: Code(s): D64.9 - Anemia, unspecified Category: Medical Plan: Anemia has improved since last blood work we will continue to monitor. (2) GERD (gastroesophageal reflux disease): Code(s): K21.9 - Gastro-esophageal reflux disease without esophagitis Category: Medical Qualifiers: Esophagitis presence: without esophagitis Qualified Code(s): K21.9 - G lani-esophageal reflux disease without esophagitis Plan: Avoid trigger foods such as citrus, tomato products, soda, caffeine, spicy foods and other foods that may be irritating to your stomach. Avoid laying flat 3-4 hours after eating and elevate the head of the bed 30 degrees to prevent acid from moving into the esophagus. Patient complaining of reflux and gas symptoms that can occasionally cause chest pressure and pain. EKG performed today that showed normal sinus rhythm no concern at this time for cardiac involvement. We will start on omeprazole 20 mg and patient can continue to use [id number] simethicone as needed. (3) Hypertension: Code(s): I10 - Essential (primary) hypertension Category: Medical Qualifiers: Hypertension type: essential hypertension Qualified Code(s): I10 - Essential (primary) hypertension Plan: Continue on current blood pressure medication. Avoid salt intake and encourage healthy diet and regular exercise. (4) Hypothyroid: Code(s): E03.9 - Hypothyroidism, unspecified Category: Medical Qualifiers: Hypothyroidism type: acquired Qualified Code(s): E03.9 - Hypothyroidism, unspecified Plan: Patient currently on levothyroxine 100 mcg which has increased after elevated TSH on last labs. Patient has repeat blood work for next week and we will continue to monitor. Plan This note was constructed using voice recognition software. While every effort has been made to ensure accuracy and nail polish brush machine feeder, still areas may have been included sometimes these areas may affect the content or meeting of the given symptoms. Total time spent caring for the patient today was 30 minutes. This includes time spent before the visit reviewing the chart, time spent during the visit, and time spent after the visit and documentation. Orders: Orders Influenza [id number] Immunization Today Z23 - Encounter for immunization AMB EKG-In Office Today K21.9 - Gastro-esophageal reflux disease without esophagitis Medications: New omeprazole 20 mg PO DAILY 30 caps 2RF
[2024-06-22 11:21] VITALS: BP 140/70; PULSE 67; O2SAT 97; BMI 25.0
[2024-06-22 12:03] VITALS: BP 138/60
== END 2024-06-22 12:26 | disposition home or self-care (01) ==
PROVIDERS: PCP Internal Medicine
DX: D64.9 Anemia, unspecified (principal); K21.9 Gastro-esophageal reflux disease without esophagitis; I10 Essential (primary) hypertension; E03.9 Hypothyroidism, unspecified; Z23 Encounter for immunization

== ENCOUNTER → 2024-06-22 11:18 | Outpatient (BNVA) | payer MEDICARE, SELFPAY | PROVIDERS: PCP Internal Medicine | DX: Z23 Encounter for immunization (principal); D64.9 Anemia, unspecified; K21.9 Gastro-esophageal reflux disease without esophagitis; I10 Essential (primary) hypertension; E03.9 Hypothyroidism, unspecified | CPT/HCPCS: 90471; 90656; 93005; 99212 ==

== ENCOUNTER 2024-07-19 13:51 | Outpatient (REF) | payer MEDICARE, SELFPAY ==
[2024-07-19 14:10] LABS: MANUAL DIFF FLAG NO
[2024-07-19 14:51] LABS: Basophils Percent Auto 0.4 % (0-2); Eosinophils Absolute Auto 0.3 X10*3/uL (0.0-0.4); Eosinophils Percent Auto 3.1 % (0-4); Hematocrit 42.6 % (42.0-52.0); Hemoglobin 13.7 g/dl (14.0-18.0); Imm Gran Abs Auto 0.02 X10*3/uL (0.00-0.03); Imm Gran Pct Auto 0.2 % (0.0-0.4); Lymphocytes Percent Auto 36.6 % (20-40); Mean Corpuscular HGB Conc 32.2 g/dl (31.0-36.0); Mean Corpuscular Hemoglobin 29.1 pg (27.0-33.0); Mean Corpuscular Volume 90.6 fL (80.0-98.0); Mean Platelet Volume 10.3 fL (9.4-12.4); Monocytes Absolute Auto 0.8 X10*3/uL (0.1-1.2); Monocytes Percent Auto 9.4 % (2-11); Neutrophils Absolute Auto 4.2 x10*3/uL (2.0-8.3); Neutrophils Percent Auto 50.3 % (45-73); Platelet Count 281 X10*3/uL (160-400); Red Cell Distribution Width 13.7 % (11.0-16.0); White Blood Count 8.3 X10*3/uL (4.8-10.8)
[2024-07-19 15:30] LABS: Free T4 (Free Thyroxine) 1.29 ng/dL (0.71-1.85); Thyroid Stimulating Hormone 5.08 uIU/mL (0.32-4.0)
== END 2024-07-19 13:52 | disposition home or self-care (01) ==
LOC: HO.LAB 13:51
PROVIDERS: PCP Internal Medicine; Visit Provider Internal Medicine
DX: E03.9 Hypothyroidism, unspecified (principal); N28.9 Disorder of kidney and ureter, unspecified
CPT/HCPCS: 36415; 84439; 84443; 85025

== ENCOUNTER 2024-09-17 10:57 | Outpatient (REF) | payer MEDICARE, SELFPAY ==
[2024-09-17 12:58] LABS: Free T4 (Free Thyroxine) 1.25 ng/dL (0.71-1.85); Thyroid Stimulating Hormone 3.79 uIU/mL (0.32-4.0)
== END 2024-09-17 10:58 | disposition home or self-care (01) ==
LOC: HO.LAB 10:57
PROVIDERS: PCP Internal Medicine; Visit Provider Internal Medicine
DX: E03.9 Hypothyroidism, unspecified (principal)
CPT/HCPCS: 36415; 84439; 84443

== ENCOUNTER 2024-09-20 10:57 | Outpatient (AMB) | payer MEDICARE, SELFPAY ==
[2024-09-20 11:02] VITALS: BP 126/70; PULSE 84; O2SAT 98
--- NOTE | 2024-09-20 11:02 | A.OFFPC_ITS ---
Vital Signs 09/20/24 11:02 Weight 170 lb 4 oz BP 126/70 Blood Pressure Location Lt brachial Position Sitting Pulse 84 Pulse Source Pulse Oximeter Pulse Oximetry (%) 98 Oxygen Delivery Method Room Air Intake Visit Reasons: f/u GERD Stoker Mechanic Required: No Accompanied by: Self / Same As Patient Allergies lisinopril Allergy (Unknown, Verified 09/20/24 11:21) hyperkalemia Medication List - Last Reconciled 09/20/24 by Whitney Santoro PA-C cholecalciferol (vitamin D3) 25 mcg PO DAILY cyanocobalamin (vitamin B-12) 1,000 mcg PO DAILY diclofenac sodium 1% (Voltaren Arthritis Pain) 4 grams topical QID levothyroxine 100 mcg PO DAILY omeprazole 20 mg PO DAILY Tobacco use date assessed: 09/20/24 Fall risk assessment: No Falls in past year Last assessed Fall Risk: 09/20/24 Dental Screening Dental Screen Date: 09/20/24 Did you have a dental visit in the last 12 months?: No Did you have a dental problem in the last 6 months where you did not have access to dental care?: No Was dental information given to patient?: No HPI f/u GERD HPI Details 84-year-old male with past medical histo ry gout, renal insufficiency, impaired glucose tolerance, GERD, hypothyroidism last seen 06/2024 coming in for follow up.? Started on omeprazole 20 mg at his last visit has since stopped taking because the reflux has improved. He is no longer having burning sensation and chest pains. Overall he is feeling generally well and has no acute concerns today. FORMERLY [facility], [facility] Medical History Pernicious anemia Post herpetic neuralgia GERD (gastroesophageal reflux disease) Melanoma Hypertension Vitamin D deficiency Gout Hypothyroid Surgical History History of tonsillectomy Family History Father No problems noted. Mother Diabetes Hypertension CVD (cardiovascular disease) Social History Housing: House Alcohol intake: current Alcohol intake frequency: 0-2 drinks per day Comment: once a week 1 drink Patient Tobacco Use Status: Never used Tobacco e-Cigarette/Vaping Use: Never Used Second Hand Smoke Exposure: No service: No Current occupational status: retired Cognitive needs: No Hearing needs: Yes Vision needs: Yes Questionnaire PHQ-9 Over the last 2 weeks, how often have you been bothered by any of the following problems? 1. Little interest or pleasure in doing things: not at all 2. Feeling down, depressed, or hopeless: not at all 3. Trouble falling or staying asleep, or sleeping too much: not at all 4. Feeling tired or having little energy: not at all 5. Poor appetite or overeating: not at all 6. Feeling bad about yourself - or that you are a failure or have let yourself or your family down: not at all 7. Trouble concentrating on things, such as reading the newspaper or watching television: not at all 8. Moving or speaking so slowly that other people could have noticed. Or the opposite - being so fidgety or restless that you have been moving around a lot more than usual: not at all 9. Thoughts that you would be better off or of hurting yourself in some way: not at all Total score: 0 Depression Screening Interpretation: Negative Depression Screening Done: Yes Source: Developed by Drs. oJse Solano, Raven Haywood, Eyad Diaz and colleagues, with an educational sulema from [employer]. Thrive Questionnaire Date Thrive assessed: 09/20/24 I am a: Patient What is your living situation today?: I have a steady place to live Within the past 12 months, did the food you bought not last and you didn't have the money to get more?: Never true Within the past 12 months, did you worry whether your food would run out before you got money to buy more?: Never true Do you have trouble paying for medicines?: No Do you have trouble getting transportation to medical appointments?: No Do you have trouble paying your heating and electricity bill?: No Do you have trouble taking care of your child, family member or friend?: No Do you have trouble with day-to-day activities such as bathing, preparing meals, shopping, managing finances, etc.?: No Are you currently unemployed and looking for a job?: No Are you interested in more education?: No Please select the resources that you would like help with: None Currently or been in a relationship where the following occur: No concerns reported THRIVE Score: 0 AUDIT C Alcohol Use Questionnaire (AUDIT-C) 1. How often do you have a drink containing alcohol?: 4 or more times a week 2. How many drinks containing alcohol do you have on a typical day when you are drinking?: 1 or 2 3. How often do you have six or more drinks on one occasion?: Never Total Score: 4 STEPHIE-7 AMB Questionnaire STEPHIE-7 Date STEPHIE - 7 assessed: 09/20/24 Feeling nervous, anxious, or on edge: 0 = Not at all Not being able to stop or control worryin = Not at all Worrying too much about different things: 0 = Not at all Trouble relaxin = Not at all Being so restless that it is hard to sit still: 0 = Not at all Becoming easily annoyed or irritable: 0 = Not at all Feeling afraid as if something awful might happen: 0 = Not at all Total STEPHIE-7 score (0-4 normal; 5-9 mild; 10-14 moderate; 15-21 severe): 0 Source: Developed by Drs. Jose Solano, Raven Haywood, Eyad Diaz and colleagues, with an educational sulema from [employer]. Review of Systems Const Denies body aches, Denies chills, Denies fever(s), Denies headache(s) and Denies poor appetite Eyes Reports no additional complaints ENT Denies dysphagia, Denies dizziness, Denies headache(s) and Denies odynophagia Card Denies chest pain, Denies syncope, Denies edema, Denies irregular heart rhythm, Denies lightheadedness and Denies dyspnea Resp Denies cough and Denies dyspnea GI Denies abdominal pain, Denies constipation, Denies dysphagia, Denies diarrhea, Denies nausea, Denies odynophagia and Denies vomiting Reports no additional complaints Musc Reports no additional complaints and Denies abnormal gait Skin/Breast Reports system reviewed and no additional complaints, except as documented Neuro Denies abnormal gait, Denies dizziness, Denies syncope and Denies headache(s) Psych Reports no additional complaints Physical exam (Primary Care) Vital Signs: Oxygen Delivery Method Room Air 09/20/24 11:02 Tobacco/Smoking Status: Tobacco use Status Tobacco use date assessed 06/22/24 06/22/24 11:26 Patient Tobacco Use Status Never used Tobacco 06/22/24 11:26 e-Cigarette/Vaping Use Never Used 06/22/24 11:26 Depression Screening Interpretation: Negative Thrive Assessment: Date of Thrive Assessment Date Thrive assessed 12/22/23 06/22/24 11:26 Currently or been in a relationship where the following occur: No concerns reported Const General: cooperative, healthy appearing, comfortable and no acute distress Orientation/consciousness: patient oriented x3 HENMT Head: Yes normocephalic Ears: hearing grossly normal bilaterally General nose exam: Normal external nose present Eyes General: appearance normal, both eyes and all related structures Conjunctivae: conjunctivae normal Neck Neck: Yes full ROM and Yes no lymphadenopathy Resp Effort & Inspection: normal respiratory effort Auscultation: clear to auscultation bilaterally, no crackles, no rales, no rhonchi and no wheezes Cardio Rate: regular rate Rhythm: regular rhythm Skin General skin exam: no rashes or lesions noted Neuro General: patient oriented x3 Gait exam (Neuro): Normal gait present Extrem General: Yes normal to inspection, Yes full ROM and No edema Psych Affect: normal affect Attitude: cooperative Insight: Good insight present (Psych) Judgement: Good judgement present (Psych) Coding Level of Care Code Est Pt Level 3 (64980) Diagnoses Impaired fasting blood sugar R73.01 Gastroesophageal reflux disease without esophagitis K21.9 Esophagitis presence: without esophagitis Essential hypertension I10 Hypertension type: essential hypertension Acquired hypothyroidism E03.9 Hypothyroidism type: acquired Assessment & Plan Assessment & Plan (1) Impaired fasting blood sugar: Code(s): R73.01 - Impaired fasting glucose Category: Medical Plan: Decrease the amount of carbohydrates such as pasta, bread, rice, and potatoes and limit the amount of sweets. Although fruits are generally healthy they should be eaten in moderation as they are still high in sugar. (2) GERD (gastroesophageal reflux disease): Code(s): K21.9 - Gastro-esophageal reflux disease without esophagitis Category: Medical Qualifiers: Esophagitis presence: without esophagitis Qualified Code(s): K21.9 - Gastro-esophageal reflux disease without esophagitis Plan: Avoid trigger foods such as citrus, tomato products, soda, caffeine, spicy foods and other foods that may be irritating to your stomach. Avoid laying flat 3-4 hours after eating and elevate the head of the bed 30 degrees to prevent acid from moving into the esophagus. At his last visit was started on Omeprazole 20mg but has no longer been using as his symptoms have improved. (3) Hypertension: Code(s): I10 - Essential (primary) hypertension Category: Medical Qualifiers: Hypertension type: essential hypertension Qualified Code(s): I10 - Essential (primary) hypertension Plan: Continue on current blood pressure medication. Avoid salt intake and encourage healthy diet and regular exercise. (4) Hypothyroid: Code(s): E03.9 - Hypothyroidism, unspecified Category: Medical Qualifiers: Hypothyroidism type: acquired Qualified Code(s): E03.9 - Hypothyroidism, unspecified Plan: Continue to monitor blood work. Plan This note was constructed using voice recognition software. While every effort has been made to ensure accuracy and lockstitch front maker, still areas may have been included sometimes these areas may affect the content or meeting of the given symptoms. Total time spent caring for the patient today was 20 minutes. This includes time spent before the visit reviewing the chart, time spent during the visit, and time spent after the visit and documentation.
== END 2024-09-20 11:30 | disposition home or self-care (01) ==
LOC: HO.HMCH 10:58
PROVIDERS: PCP Internal Medicine
DX: R73.01 Impaired fasting glucose (principal); K21.9 Gastro-esophageal reflux disease without esophagitis; I10 Essential (primary) hypertension; E03.9 Hypothyroidism, unspecified

== ENCOUNTER → 2024-09-20 10:57 | Outpatient (BNVA) | payer MEDICARE, SELFPAY | PROVIDERS: PCP Internal Medicine | DX: R73.01 Impaired fasting glucose (principal); K21.9 Gastro-esophageal reflux disease without esophagitis; I10 Essential (primary) hypertension; E03.9 Hypothyroidism, unspecified | CPT/HCPCS: 99212 ==

== ENCOUNTER 2024-12-25 11:43 | Outpatient (AMB) | payer MEDICARE, SELFPAY ==
[2024-12-25 11:52] VITALS: BP 120/66; PULSE 67; O2SAT 99; BMI 24.8
--- NOTE | 2024-12-25 11:52 | MHC.PC.OV ---
Vital Signs 12/25/24 11:52 Height 5 ft 9 in Weight 168 lb 4 oz BMI 24.8 BP 120/66 Blood Pressure Location Lt brachial Position Sitting Pulse 67 Pulse Source Pulse Oximeter Pulse Oximetry (%) 99 Oxygen Delivery Method Room Air Intake Visit Reasons: f/u GERD and thyroid Lapidary Apprentice Required: No Accompanied by: Self / Same As Patient Allergies lisinopril Allergy (Unknown, Verified 12/25/24 11:52) hyperkalemia Medication List - Last Reconciled 12/25/24 by Zenon Leal MD cholecalciferol (vitamin D3) 25 mcg PO DAILY cyanocobalamin (vitamin B-12) 1,000 mcg PO DAILY levothyroxine 100 mcg PO DAILY omeprazole 20 mg PO DAILY Tobacco use date assessed: 12/25/24 Fall risk assessment: No Falls in past year Last assessed Fall Risk: 12/25/24 Dental Screening Dental Screen Date: 12/25/24 Did you have a dental visit in the last 12 months?: No Did you have a dental problem in the last 6 months where you did not have access to dental care?: No Was dental information given to patient?: No FORMERLY [facility] Medical History Pernicious anemia Post herpetic neuralgia GERD (gastroesophageal reflux disease) Melanoma Hypertension Vitamin D deficiency Gout Hypothyroid Surgical History History of tonsillectomy Family History Father No problems noted. Mother Diabetes Hypertension CVD (cardiovascular disease) Social History Housing: House Alcohol intake: current Alcohol intake frequency: 0-2 drinks per day Comment: once a week 1 drink Patient Tobacco Use Status: Never used Tobacco e-Cigarette/Vaping Use: Never Used Second Hand Smoke Exposure: No service: No Current occupational status: retired Cognitive needs: No Hearing needs: Yes Vision needs: Yes Questionnaire PHQ-9 Over the last 2 weeks, how often have you been bothered by any of the following problems? 1. Little interest or pleasure in doing things: not at all 2. Feeling down, depressed, or hopeless: not at all 3. Trouble falling or staying asleep, or sleeping too much: not at all 4. Feeling tired or having little energy: not at all 5. Poor appetite or overeating: not at all 6. Feeling bad about yourself - or that you are a failure or have let yourself or your family down: not at all 7. Trouble concentrating on things, such as reading the newspaper or watching television: not at all 8. Moving or speaking so slowly that other people could have noticed. Or the opposite - being so fidgety or restless that you have been moving around a lot more than usual: not at all 9. Thoughts that you would be better off or of hurting yourself in some way: not at all Total score: 0 Source: Developed by Drs. Jose Solano, Raven Haywood, Eyad Diaz and colleagues, with an educational sulema from [employer]. Thrive Questionnaire Date Thrive assessed: 12/25/24 I am a: Patient What is your living situation today?: I have a steady place to live Within the past 12 months, did the food you bought not last and you didn't have the money to get more?: Never true Within the past 12 months, did you worry whether your food would run out before you got money to buy more?: Never true Do you have trouble paying for medicines?: No Do you have trouble getting transportation to medical appointments?: No Do you have trouble paying your heating and electricity bill?: No Do you have trouble taking care of your child, family member or friend?: No Do you have trouble with day-to-day activities such as bathing, preparing meals, shopping, managing finances, etc.?: No Are you currently unemployed and looking for a job?: No Are you interested in more education?: No Please select the resources that you would like help with: None Currently or been in a relationship where the following occur: No concerns reported THRIVE Score: 0 AUDIT C Alcohol Use Questionnaire (AUDIT-C) 1. How often do you have a drink containing alcohol?: 2-4 times a month 2. How many drinks containing alcohol do you have on a typical day when you are drinking?: 1 or 2 3. How often do you have six or more drinks on one occasion?: Never Total Score: 2 STEPHIE-7 AMB Questionnaire STEPHIE-7 Date STEPHIE - 7 assessed: 12/25/24 Feeling nervous, anxious, or on edge: 0 = Not at all Not being able to stop or control worryin = Not at all Worrying too much about different things: 0 = Not at all Trouble relaxin = Not at all Being so restless that it is hard to sit still: 0 = Not at all Becoming easily annoyed or irritable: 0 = Not at all Feeling afraid as if something awful might happen: 0 = Not at all Total STEPHIE-7 score (0-4 normal; 5-9 mild; 10-14 moderate; 15-21 severe): 0 Source: Developed by Drs. Jose Solano, Raven Haywood, Eyad Diaz and colleagues, with an educational sulema from [employer]. Physical exam (Primary Care) Vital Signs: Last Vital Signs Pulse 67 12/25/24 11:52 BP 120/66 12/25/24 11:52 Pulse Ox 99 12/25/24 11:52 Oxygen Delivery Method Room Air 12/25/24 11:52 BMI result Body Mass Index 24.8 Tobacco/Smoking Status: Tobacco use Status Tobacco use date assessed 12/25/24 12/25/24 11:58 Patient Tobacco Use Status Never used Tobacco 12/25/24 11:58 e-Cigarette/Vaping Use Never Used 12/25/24 11:58 PHQ-9: PHQ-9 Score PHQ-9: Total score 0 12/25/24 12:23 Thrive Assessment: Date of Thrive Assessment Date Thrive assessed 12/25/24 12/25/24 11:58 Currently or been in a relationship where the following occur: No concerns reported Const General: alert; No acute distress Eyes Conjunctivae: conjunctivae normal Resp Auscultation: clear to auscultation bilaterally Cardio Rate: regular rate Rhythm: regular rhythm GI Inspection: Yes normal to inspection Extrem General: Yes normal to inspection and No edema Coding Level of Care Code Est Pt Level 4 (41186) Diagnoses Anemia D64.9 Impaired fasting blood sugar R73.01 Chronic gout without tophus, unspecified cause, unspecified site [id number] Chronicity: chronic Gout etiology: unspecified cause Gout site: unspecified site Presence of tophus: without tophus Gastroesophageal reflux disease without esophagitis K21.9 Esophagitis presence: without esophagitis Essential hypertension I10 Hypertension type: essential hypertension Acquired hypothyroidism E03.9 Hypothyroidism type: acquired Cataract H26.9 Assessment & Plan Assessment & Plan (1) Anemia: Code(s): D64.9 - Anemia, unspecified Category: Medical Plan: Continuing to monitor (2) Impaired fasting blood sugar: Code(s): R73.01 - Impaired fasting glucose Category: Medical Plan: Decrease the amount of carbohydrate intake, pasta, bread, rice and potatoes are all sugar and that is aside from all the sweet stuff, remember that fruits are good but they are Sweet also. (3) Gout: Code(s): M10.9 - Gout, unspecified Category: Medical Qualifiers: Chronicity: chronic Gout etiology: unspecified cause Gout site: unspecified site Presence of tophus: without tophus Qualified Code(s): [id number].[id number] - Chronic gout, unspecified, without tophus (tophi) Plan: Keep well hydrated need for low purine diet (4) GERD (gastroesophageal reflux disease): Code(s): K21.9 - Gastro-esophageal reflux disease without esophagitis Category: Medical Qualifiers: Esophagitis presence: without esophagitis Qualified Code(s): K21.9 - Gastro-esophageal reflux disease without esophagitis Plan: Avoid the foods that causes that usually spicy foods, tomato products, juices, coffee, soda and foods that your sensitive to. After eating do not lie down, allow 3-4 hours before in lie down. And keep the head of bed above 30 degrees to avoid the acid from going up. (5) Hypertension: Code(s): I10 - Essential (primary) hypertension Category: Medical Qualifiers: Hypertension type: essential hypertension Qualified Code(s): I10 - Essential (primary) hypertension Plan: Patient's blood pressure under control with no medication (6) Hypothyroid: Code(s): E03.9 - Hypothyroidism, unspecified Category: Medical Qualifiers: Hypothyroidism type: acquired Qualified Code(s): E03.9 - Hypothyroidism, unspecified Plan: Continue with thyroid medication September 2024 last blood work (7) Cataract: Code(s): H26.9 - Unspecified cataract Category: Medical Plan History of Present Illness The patient is an 84-year-old male presenting for a follow-up visit. The patient has a history of hypothyroidism, which is currently managed with medication. His thyroid levels were last checked in September 2024 and were within the normal range. Hypertension is noted in his medical history, but his blood pressure is currently under control without medication. The patient has been diagnosed with Gastroesophageal Reflux Disease (GERD) and is prescribed omeprazole, although he rarely takes it. He has a history of gout and is advised to follow a low purine diet to manage this condition. Impaired glucose tolerance is part of his medical history, with a recent blood sugar level of 114 mg/dL. Renal insufficiency is also noted, with a creatinine level of 1.26 mg/dL from recent blood work. The patient has mild anemia, as indicated by blood work done in July 2024. He is developing cataracts, which have been advised for follow-up with an product safety and standards engineer. Health Maintenance - Vaccinations: Up to date with shingles, tetanus, and pneumonia vaccines - Eye care: Referral to product safety and standards engineer for cataract monitoring - Diet: Advised to follow a low purine diet for gout management Social History - Exercise: Patient tries to keep active - Eye care: Regular visits to project design engineer, advised to see an product safety and standards engineer for cataracts Review of Systems - General: Denies any new complaints - Respiratory: Denies cough, sore throat, or difficulty swallowing - Cardiovascular: Denies chest pain or palpitations - Gastrointestinal: Denies abdominal pain, reports rare use of omeprazole for GERD - Musculoskeletal: Denies joint pain, no use of Voltaren gel - Neurological: Denies headaches or dizziness - Ophthalmologic: Reports developing cataracts, advised follow-up with product safety and standards engineer - Endocrine: Reports stable thyroid function Physical Exam Results - Labs: Mild anemia noted in July 2024 blood work - Labs: Creatinine level of 1.26 mg/dL, blood sugar of 114 mg/dL - Labs: LDL cholesterol level of 89 mg/dL in November 2023 - Labs: Thyroid function tests normal in September 2024 Plan The patient will continue with his current thyroid medication as his thyroid levels are stable. Regular monitoring of thyroid function will be maintained to ensure continued stability. Blood pressure is currently well-controlled without medication, and this will be monitored during follow-up visits. For GERD, the patient is advised to continue using omeprazole as needed, although he reports rare use. Dietary modifications may be considered to manage symptoms. A low purine diet is recommended to manage gout, and the patient is advised to stay well-hydrated. The patient's glucose levels will be monitored to manage impaired glucose tolerance, with lifestyle modifications as needed. Renal function will be monitored, given the creatinine level of 1.26 mg/dL, to assess for any progression of renal insufficiency. Anemia will be monitored with follow-up blood work to assess any changes or need for intervention. A referral to an product safety and standards engineer has been made for cataract evaluation and management. Patient was informed and verbally consented to the use of an ambient scribe for clinic note documentation during this visit. Discussion Notes During the visit, I discussed with the patient the importance of continuing his thyroid medication and monitoring his thyroid levels regularly. We reviewed his blood pressure management, noting that it is currently well-controlled without medication. I advised him to use omeprazole for GERD as needed and consider dietary changes to alleviate symptoms. We discussed the need for a low purine diet and adequate hydration to manage gout. I emphasized the importance of monitoring his glucose levels and renal function, given his impaired glucose tolerance and renal insufficiency. We also talked about the mild anemia noted in his recent blood work and the need for follow-up. Finally, I arranged a referral to an product safety and standards engineer for cataract evaluation and management. Patient Instructions - Continue taking thyroid medication as prescribed. - Monitor blood pressure regularly. - Use omeprazole for GERD as needed. - Follow a low purine diet and stay hydrated to manage gout. - Monitor blood sugar levels and maintain a healthy lifestyle. - Follow up with blood work to monitor anemia. - Attend ophthalmology appointment for cataract evaluation. Orders: Referrals Ophthalmology Referral H26.9 - Unspecified cataract
== END 2024-12-25 12:35 | disposition home or self-care (01) ==
LOC: HO.HMCH 11:51
PROVIDERS: PCP Internal Medicine; Visit Provider Internal Medicine
DX: D64.9 Anemia, unspecified (principal); R73.01 Impaired fasting glucose; M1A.9XX0 Chronic gout, unspecified, without tophus (tophi); K21.9 Gastro-esophageal reflux disease without esophagitis; I10 Essential (primary) hypertension; E03.9 Hypothyroidism, unspecified; H26.9 Unspecified cataract

== ENCOUNTER → 2024-12-25 11:43 | Outpatient (BNVA) | payer MEDICARE, SELFPAY | PROVIDERS: PCP Internal Medicine; Visit Provider Internal Medicine | DX: D64.9 Anemia, unspecified (principal); R73.01 Impaired fasting glucose; M1A.9XX0 Chronic gout, unspecified, without tophus (tophi); K21.9 Gastro-esophageal reflux disease without esophagitis; I10 Essential (primary) hypertension; E03.9 Hypothyroidism, unspecified; H26.9 Unspecified cataract | CPT/HCPCS: 99212 ==

== ENCOUNTER 2025-05-07 13:32 | Outpatient (AMB) | payer MEDICARE, SELFPAY ==
--- NOTE | 2025-05-07 13:35 | A.OFFVIS_ITS ---
Intake Vital Signs 05/07/25 13:36 Height 5 ft 9 in Weight 170 lb 4 oz BMI 25.1 BP 126/64 Blood Pressure Location Lt brachial Position Sitting Pulse 85 Pulse Source Pulse Oximeter Temp 97.5 F Temp Source Temporal Artery Scan Pulse Oximetry (%) 98 Oxygen Delivery Method Room Air Intake Visit Reasons: SWV G0439 Allergies lisinopril Allergy (Unknown, Verified 05/07/25 13:44) hyperkalemia Medication List - Last Reconciled 05/07/25 by Zenon Leal MD cholecalciferol (vitamin D3) 25 mcg PO DAILY cyanocobalamin (vitamin B-12) 1,000 mcg PO DAILY levothyroxine 100 mcg PO DAILY omeprazole 20 mg PO DAILY HPI SWV G0439 HPI Details Rheumatology [facility] salmon of care [facility] Medical History Pernicious anemia Post herpetic neuralgia GERD (gastroesophageal reflux disease) Melanoma Hypertension Vitamin D deficiency Gout Hypothyroid Surgical History History of tonsillectomy Family History Father No problems noted. Mother Diabetes Hypertension CVD (cardiovascular disease) Social History Housing: House Alcohol intake: current Alcohol intake frequency: 0-2 drinks per day Comment: once a week 1 drink Patient Tobacco Use Status: Never used Tobacco e-Cigarette/Vaping Use: Never Used Second Hand Smoke Exposure: No service: No Current occupational status: retired Cognitive needs: No Hearing needs: Yes Vision needs: Yes Questionnaire Medicare Wellness Checkup What is your age?: 79 or older What gender do you identify with?: male During the past 4 weeks, how much have you been bothered by emotional problems such as feeling anxious, depressed, irritable, sad or downhearted, and blue?: not at all During the past 4 weeks, has your physical & emotional health limited your social activities with family, friends, neighbors, or groups?: not at all During the past 4 weeks, how much bodily pain have you generally had?: no pain During the past 4 weeks, was someone available to help you if you needed & wanted help?: yes, as much as I wanted During the past 4 weeks, what was the hardest physical activity you could do for at least 2 minutes?: light Can you get to places out of walking distance without help? (For eg., can you travel alone on buses, taxis or drive your car?): Yes Can you go shopping for groceries or clothes without someone's help?: Yes Can you prepare your own meals?: Yes Can you do your housework without help?: Yes Because of any health problems, do you need the help of another person with your personal care needs such as eating, bathing, dressing or getting around the house?: No Can you handle your own money without help?: Yes During the past 4 weeks, how would you rate your health in general?: good During the past 4 weeks how have things been going for you?: very well; could hardly better Are you having difficulties driving your car?: no Do you always fasten your seat belt when you are in a car?: yes, usually During past 4 weeks, have you been bothered by the following: never: Falling or dizzy when standing up, Sexual problems?, Trouble eating well?, Teeth or denture problems?, Problems using the telephone? and Tiredness or fatigue? Have you fallen 2 or more times in the past year?: No Are you afraid of falling?: Yes Are you a smoker?: no During the past 4 weeks, how many drinks of wine, beer, or other alcoholic beverages did you have?: 1 drink or less per week Do you exercise for about 20 minutes 3 or more times a week?: yes, some of the time Have you been given information to help with the following?: no: Hazards in your house that might hurt you? and no: Keeping track of your medications? How often do you have trouble taking medicines the way you have been told to take them?: I always take medicine as prescribed What is your race?: White PHQ-9 Over the last 2 weeks, how often have you been bothered by any of the following problems? 1. Little interest or pleasure in doing things: not at all 2. Feeling down, depressed, or hopeless: not at all 3. Trouble falling or staying asleep, or sleeping too much: not at all 4. Feeling tired or having little energy: several days 5. Poor appetite or overeating: not at all 6. Feeling bad about yourself - or that you are a failure or have let yourself or your family down: not at all 7. Trouble concentrating on things, such as reading the newspaper or watching television: not at all 8. Moving or speaking so slowly that other people could have noticed. Or the opposite - being so fidgety or restless that you have been moving around a lot more than usual: not at all 9. Thoughts that you would be better off or of hurting yourself in some way: not at all Total score: 1 Depression Screening Interpretation: Positive Depression Screening Done: Yes 35847 - PHQ-9 Billing: Yes Source: Developed by Drs. Jose Solano, Raven Haywood, Eyad Diaz and colleagues, with an educational sulema from [employer]. Review of Systems Const Denies poor appetite and Denies weakness Eyes Denies no additional complaints ENT Reports Normal hearing present, Denies dizziness, Denies nasal congestion, Jesus es tinnitus and Denies sore throat Card Denies chest pain, Denies syncope, Denies rapid heart rate and Denies dyspnea Resp Denies cough and Denies dyspnea GI Denies change in stool character, Reports constipation, Denies diarrhea, Denies nausea and Denies vomiting Denies dysuria and Denies urinary frequency Neuro Reports Normal hearing present, Denies confusion, Denies dizziness, Denies syncope and Denies weakness Psych Denies confusion Physical Exam Vital Signs: Last Vital Signs Temp 97.5 F 05/07/25 13:36 Pulse 85 05/07/25 13:36 BP 126/64 05/07/25 13:36 Pulse Ox 98 05/07/25 13:36 Oxygen Delivery Method Room Air 05/07/25 13:36 BMI result Body Mass Index 25.1 Const General: No confusion Orientation/consciousness: No confusion HEENT Head: Yes normocephalic Ears: external ears normal and TM's normal bilaterally Face and sinus: Yes normal facial exam Mouth: moist mucous membranes Throat: Yes tonsils normal Eyes Conjunctivae: conjunctivae normal Pupils: Equal, round and reactive pupils present and Pupil accommodation reflex normal Direct Ophthalmoscopy: normal light reflex Neck Neck: No lymphadenopathy Thyroid: Thyroid normal Chest Chest palpation & inspection: normal inspection of the chest Resp Effort & Inspection: normal respiratory effort and no audible wheezes Auscultation: clear to auscultation bilaterally, no crackles, no wheezes and lung sounds not diminished Cardio Rate: regular rate Rhythm: regular rhythm Peripheral pulses: radial pulses present and dorsalis pedis present GI Palpation (GI): no masses Auscultation: normal bowel sounds and normoactive bowel sounds Rectal Exam - Male: Yes deferred Skin General skin exam: no rashes or lesions noted Rashes: no rashes Neuro General: No confusion Cranial nerves: Yes Equal, round and reactive pupils present and Yes Normal hearing present Cognition (Neuro): normal cognition Gait exam (Neuro): Normal gait present Motor exam (neuro): 5/5 motor strength present throughout Deep tendon reflexes (DTR's): Right brachioradialis reflex intensity grade: 2+, Left brachioradialis reflex intensity grade: 2+, Right patellar reflex intensity grade: 2+ and Left patellar reflex intensity grade: 2+ Extrem General: No edema Office Procedures Flu Questionnaire Does the patient have a severe egg allergy?: No Does the patient have severe life threatening allergies?: No Does the patient have a fever or illness today?: No Has the patient ever had Guillain-Creighton Syndrome?: No Has the patient ever had any past reaction to a flu shot?: No Immunizations Fluarix [id number] (PF) 45 mcg (15 mcg x 3)/0.5 mL IM syringe Performing Provider: Zenon Leal MD [facility] Administered by: Beata Harley CMA on 05/07/25 14:17 Dose Route Admin Location Dispensed Lot Number Expiration Date [facility] Supervisor Cell Room 0.5 mL IM Left Deltoid 0.5 mL [id number] 01/07/26 [id number] [employer] VIS Given Date VIS Provided VIS Publication Date 05/07/25 Single Vaccine 24 Eligibility Eligibility Date Funding Source Not [facility] Eligible 05/07/25 Private Assessment & Plan Assessment & Plan (1) Medicare annual wellness visit, subsequent: Code(s): Z00.00 - Encounter for general adult medical examination without abnormal findings Plan: Patient is advised to eat healthy, keep well hydrated, keep active and have adequate sleep. (2) Gout: Code(s): M10.9 - Gout, unspecified Qualifiers: Chronicity: chronic Gout etiology: unspecified cause Gout site: unspecified site Presence of tophus: without tophus Qualified Code(s): M1A.9XX0 - Chronic gout, unspecified, without tophus (tophi) Plan: Low purine diet and keep well hydrated (3) Anemia: Code(s): D64.9 - Anemia, unspecified Plan: Continue to monitor and will request for blood work (4) Renal insufficiency: Code(s): N28.9 - Disorder of kidney and ureter, unspecified Plan: Continue to monitor, will keep well hydrated and avoid NSAIDs (5) GERD (gastroesophageal reflux disease): Code(s): K21.9 - Gastro-esophageal reflux disease without esophagitis Qualifiers: Esophagitis presence: without esophagitis Qualified Code(s): K21.9 - Gastro-esophageal reflux disease without esophagitis Plan: Avoid the foods that causes that usually spicy foods, tomato products, juices, coffee, soda and foods that your sensitive to. After eating do not lie down, a llow 3-4 hours before in lie down. And keep the head of bed above 30 degrees to avoid the acid from going up. On omeprazole (6) Hypothyroid: Code(s): E03.9 - Hypothyroidism, unspecified Qualifiers: Hypothyroidism type: acquired Qualified Code(s): E03.9 - Hypothyroidism, unspecified Plan: Retest blood work continue with thyroid medication (7) Impaired fasting blood sugar: Code(s): R73.01 - Impaired fasting glucose Plan: Decrease the amount of carbohydrate intake, pasta, bread, rice and potatoes are all sugar and that is aside from all the sweet stuff, remember that fruits are good but they are Sweet also. (8) Inguinal bulge: Comment: L side 12/2023 Code(s): R19.09 - Other intra-abdominal and pelvic swelling, mass and lump Plan: Avoid heavy lifting Plan History of Present Illness The patient is an 85-year-old male presenting for an annual well visit. He has a history of hypothyroidism, hypertension, GERD, gout, impaired glucose tolerance, and anemia. His last blood work in July 2024 revealed a mild anemia with a hemoglobin and hematocrit of 13.7 and 42.6, respectively, a creatinine of 1.26, and a mildly elevated blood sugar of 114. Electrolytes and liver function were normal at that time (`7`, `5`). Thyroid function was checked in September 2024 and was normal, and his last cholesterol test in November 2023 showed an LDL of 89 (`8`, `9`). The patient's current medications include vitamin D, vitamin B12, a thyroid medication, and omeprazole. He denies taking any other [id number] medications or supplements (`33`). He has a known allergy to lisinopril, which caused high potassium (`33`). Since his last visit, he has had no new diagnoses or surgeries (`34`). He denies any falls, unsteadiness, dizziness, syncope, chest pain, nausea, or vomiting (`28`, `43`, `48`). He reports urinating five or six times during the day but o nly once at night (`40`). He occasionally coughs while eating, but this is not worsening (`46`). A referral was previously made to an python programmer, but the patient has not yet been contacted for an appointment. He uses a hearing aid and has not seen a sheet manager for several years, though his rashes are stable (`47`, `68`). Health Maintenance - Eye exam: The patient's last eye exam was two years ago with an slide forming machine operator. - A referral was made to an python programmer, and the patient will be given the number to follow up on scheduling. - Vaccinations: The patient is up to date with his shingles, tetanus, and pneumonia shots. - He will receive his flu shot today, and a COVID shot is also recommended. - Lab monitoring: A request for fasting blood work, to be completed in a couple of months, has been provided to check cholesterol, kidney function, and glucose levels. - Follow-up: A follow-up visit is scheduled for six months from now. - Health Care Proxy: The status of his healthcare proxy forms was discussed. - Skin exam: The patient has not seen a sheet manager in several years, but reports his rashes are not changing. - Lifestyle: Advised to maintain good hydration and a low purine diet for his history of gout. - He was also instructed to avoid lifting heavy items to prevent his inguinal hernia from worsening. Social History - Alcohol Use: Reports drinking alcohol about once a week. - Tobacco Use: Denies ever using cigarettes. - Functional Status: Reports no falls or unsteadiness while walking. - Diet: Advised to maintain good hydration and a low purine diet. Review of Systems - Constitutional: Denies fever. - HEENT: Reports using a hearing aid. - Denies problems with swallowing. - Cardiovascular: Denies passing out or chest pain. - Respiratory: Denies waking up short of breath. - Reports an occasional cough when eating, which is not worsening. - Gastrointestinal: Reports stomach rumbling after eating. - Denies nausea, vomiting, heartburn, constipation, diarrhea, or blood in stool. - Genitourinary: Reports urinating five to six times during the day and once at night. - Neurological: Denies feeling dizzy or unsteady when walking. - Musculoskeletal: Denies falls. - Skin: Reports his rashes have not changed. Physical Exam General: Cooperative, healthy appearing, comfortable, no acute distress and well developed Orientation: Patient oriented x3 Limitations: No limitations Head: Normal to inspection Ears: Hearing aid in use, right ear with a lot of ear wax, unable to see eardrum Nose: Normal external nose present Face and sinus: Normal facial exam Eyes: Appearance normal, both eyes and all related structures Neck: Normal visual inspection and Yes full ROM Respiratory: Normal respiratory effort and able to speak in complete sentences. Clear to auscultation bilaterally Cardiovascular: Regular rate and rhythm. Normal S1 and S2 GI: Normal to inspection. Soft to palpation and nontender Skin: No rashes or lesions noted Neuro: Patient oriented x3 Extremities: Normal to inspection, small inguinal hernia on the left side noted Results - Blood work (July 2024): Showed mild anemia with a hemoglobin/hematocrit of 13.7/42.6, creatinine of 1.26, and a mildly elevated glucose of 114. - Electrolytes and liver function were noted to be normal at that time. - Thyroid function test (September 2024): Normal. - Cholesterol test (November 2023): LDL was 89. Plan Patient was informed and verbally consented to the use of an ambient scribe for clinic note documentation during this visit. 1. Annual Wellness Examination The patient will receive a flu shot today, and a COVID-19 vaccination is recommended and available at pharmacies. His vaccine record indicates he is up-to-date on shingles, tetanus, and pneumonia immunizations. A requisition for fasting blood work has been provided, to be completed in about two months, to monitor cholesterol, kidney function, and glucose. A follow-up appointment is scheduled in six months, with earlier contact if lab results are abnormal. The patient was given the contact number for the python programmer to follow up on his pending referral. 2. Left Inguinal Hernia A small left inguinal hernia was identified during the examination. The patient was advised to avoid lifting heavy objects to prevent it from worsening, and the condition will be monitored. 3. Gout The patient is advised to maintain a low-purine diet and ensure adequate hydration to help manage his history of gout. 4. Hypertension The patient's blood pressure is well-controlled without medication. Will continue to monitor. 5. Gastroesophageal Reflux Disease The patient will continue taking omeprazole for GERD. 6. Hypothyroidism The patient will continue his thyroid medication, with thyroid function to be rechecked with the upcoming blood work. 7. Impaired Glucose Tolerance & Anemia His mildly elevated blood sugar and mild anemia will be monitored with the fasting blood work scheduled in two months. 8. Right Cerumen Impaction The patient was advised to continue using his ear drops to manage the cerumen impaction in his right ear, as the eardrum was not visible on examination. Discussion Notes I informed the patient that he is doing great for his age. We reviewed his vaccination status, confirming he is up-to-date on shingles, tetanus, and pneumonia shots. I advised him that he would receive his flu shot today and recommended he get the COVID shot from a pharmacy. I provided him with a requisition for fasting blood work to be done in about two months to monitor his kidney function, glucose, and cholesterol. I will have him follow up in six months, but will call him if there are any abnormalities on his labs. I gave him the phone number for the python programmer's office to follow up on his referral. During the physical exam, I noted a small left inguinal hernia and advised him to avoid heavy lifting. We also discussed the significant cerumen in his right ear, and he will continue using his drops. The patient deferred the rectal exam. We also briefly discussed ensuring his healthcare proxy forms are on file. Patient Instructions - You will get your flu shot today in the office. - We also recommend you get the COVID-19 shot, which is available at local pharmacies. - Please go for fasting blood work in about two months. - Plan to follow up in our office in six months. - We will call you if your blood work shows any problems. - For your gout, drink plenty of water and follow a low-purine diet. - You have a small hernia in your left groin area. - Avoid lifting heavy things to prevent it from getting worse. - Please continue using the drops for the wax in your right ear. - Please call the eye doctor's office to schedule your appointment since you have not heard from them. - Please ensure you have filled out and returned your healthcare proxy forms to our office. Orders: Orders Influenza [id number] Immunization Today Z23 - Encounter for immunization Comprehensive Met. Panel 2 Months R73.01 - Impaired fasting glucose Hemoglobin A1c 2 Months R73.01 - Impaired fasting glucose Ferritin 2 Months R73.01 - Impaired fasting glucose Reticulocyte Count 2 Months R73.01 - Impaired fasting glucose Lipid Panel 2 Months E78.00 - Pure hypercholesterolemia, unspecified, R73.01 - Impaired fasting glucose UA CC w/rflx Micro + Cult 2 Months R30.0 - Dysuria, R73.01 - Impaired fasting glucose Vitamin B12 and Folate 2 Months R73.01 - Impaired fasting glucose Complete Blood Count Auto Diff 2 Months R73.01 - Impaired fasting glucose Free T4 (Free Thyroxine) 2 Months R73.01 - Impaired fasting glucose IRON PROFILE 2 Months R73.01 - Impaired fasting glucose Thyroid Stimulating Hormone 2 Months R73.01 - Impaired fasting glucose Quality Reporting (2020) Depression/Bipolar (159/160/161/177) PHQ-9: Total score: 1 Coding Level of Care Code Medicare Subsequent (G0439) Diagnoses Medicare annual wellness visit, subsequent Z00.00 Chronic gout without tophus, unspecified cause, unspecified site M1A.9XX0 Chronicity: chronic Gout etiology: unspecified cause Gout site: unspecified site Presence of tophus: without tophus Anemia D64.9 Renal insufficiency N28.9 Gastroesophageal reflux disease without esophagitis K21.9 Esophagitis presence: without esophagitis Acquired hypothyroidism E03.9 Hypothyroidism type: acquired Impaired fasting blood sugar R73.01 Inguinal bulge R19.09 Additional Codes PHQ-9 - 10097 - PHQ-9 Billing: Yes ([id number])
[2025-05-07 13:36] VITALS: BP 126/64; PULSE 85; TEMP 36.4; O2SAT 98; BMI 25.1
== END 2025-05-07 14:20 | disposition home or self-care (01) ==
LOC: HO.HMCH 13:32
PROVIDERS: PCP Internal Medicine; Visit Provider Internal Medicine
DX: Z00.00 Encounter for general adult medical examination without abnormal findings (principal); M1A.9XX0 Chronic gout, unspecified, without tophus (tophi); D64.9 Anemia, unspecified; N28.9 Disorder of kidney and ureter, unspecified; K21.9 Gastro-esophageal reflux disease without esophagitis; E03.9 Hypothyroidism, unspecified; R73.01 Impaired fasting glucose; R19.09 Other intra-abdominal and pelvic swelling, mass and lump; Z23 Encounter for immunization

== ENCOUNTER → 2025-05-07 13:32 | Outpatient (BNVA) | payer MEDICARE, SELFPAY | PROVIDERS: PCP Internal Medicine; Visit Provider Internal Medicine | DX: Z23 Encounter for immunization (principal); Z13.31 Encounter for screening for depression | CPT/HCPCS: 90471; 90656; 96127 ==

== ENCOUNTER 2025-06-25 17:10 | Emergency (ER) | payer MEDICARE, SELFPAY ==
--- NOTE | ~2025-06-25 | XR_ITS ---
CLINICAL HISTORY: syncope 2 view chest x-ray Comparison: None provided Findings: The lungs are clear. Normal size heart. No acute fracture. IMPRESSION: 1. No acute findings. This document has been electronically signed by: Phill Arroyo MD on 06/25/2025 19:08:10
[2025-06-25 17:17] VITALS: BP 153/64; PULSE 50; O2SAT 100
[2025-06-25 17:20] VITALS: BP 152/67; PULSE 48; RESP 20; TEMP 36.1; O2SAT 100; BMI 25.8
--- NOTE | 2025-06-25 17:27 | ECG_ITS ---
Test Reason : DIZNESS Blood Pressure : */* mmHG Vent. Rate : 56 BPM Atrial Rate : 56 BPM P-R Int : 160 ms QRS Dur : 86 ms QT Int : 434 ms P-R-T Axes : 64 6 23 degrees QTcB Int : 418 ms Sinus bradycardia Inferior infarct , age undetermined Abnormal ECG No previous ECGs available Referred By: Generic ED Physician Electronically Signed By: Michael Saucedo
[2025-06-25 17:29] VITALS: BP 144/61; BP 152/65; PULSE 52; PULSE 66
[2025-06-25 17:31] VITALS: BP 151/60; PULSE 63
--- NOTE | 2025-06-25 17:41 | ED.GENADULT ---
HPI - General Adult General Chief complaint: Weakness Stated complaint: weakness, hr 55 Time Seen by Provider: 06/25/25 17:41 History of Present Illness ED Provider: Isma DRISCOLL narrative: The patient is an 85-year-old male with a history of hypothyroidism who lives at home with his family. He says that he has been watching TV today. He has been feeling in his usual state of health. He has been sitting for perhaps an hour or longer. At some point he decided he wanted to change his chairs and so he stood up. When he stood up he felt very lightheaded and he felt as if his face flushed. He felt as if he might pass out and so he sat down again. He called for help. His ex- was in the house. His ex- called an ambulance and he was brought to the hospital. The patient says that he had no associated headache, no associated chest pain, no associated abdominal pain, no associated nausea or vomiting, no associated shortness of breath. He has had no fever, sweats or chills. He has never had an episode like this before. He says that he only takes medication for his hypothyroidism. He has no history of hypertension, elevated cholesterol, or diabetes. He has never been a smoker. He denies feeling unwell recently. He says his last bowel movement was yesterday. He does not think he has had any dark stools or remarkable stools in any other way. Related Data Home Medications ?Medication ?Instructions ?Recorded ?Confirmed cholecalciferol (vitamin D3) 25 25 mcg PO DAILY 05/28/20 05/07/25 mcg (1,000 unit) capsule cyanocobalamin (vitamin B-12) 1,000 mcg PO DAILY 05/28/20 05/07/25 1,000 mcg capsule Previous Rx's ?Medication ?Instructions ?Recorded omeprazole 20 mg capsule,delayed 20 mg PO DAILY #30 caps 06/22/24 release levothyroxine 100 mcg tablet 100 mcg PO DAILY #90 tabs 05/18/25 Allergies Allergy/AdvReac Type Severity Reaction Status Date / Time lisinopril Allergy Unknown hyperkalemi Verified 06/25/25 17:24 a Review of Systems Review of Systems: Yes all other systems are reviewed and are negative PMFSH Past Medical History Medical History Pernicious anemia Post herpetic neuralgia GERD (gastroesophageal reflux disease) Melanoma Hypertension Vitamin D deficiency Gout Hypothyroid Surgical History History of tonsillectomy Family History Family History Father No problems noted. Mother Diabetes Hypertension CVD (cardiovascular disease) Social History Social History Housing: House Alcohol intake: current Alcohol intake frequency: 0-2 drinks per day Comment: once a week 1 drink Patient Tobacco Use Status: Never used Tobacco e-Cigarette/Vaping Use: Never Used Second Hand Smoke Exposure: No service: No Current occupational status: retired Cognitive needs: No Hearing needs: Yes Vision needs: Yes Physical Exam ED Vital Signs: Vital Signs - 24 hr 06/25/25 17:20 06/25/25 17:29 06/25/25 17:29 Temperature 97 F Pulse Rate 48 L 52 66 Respiratory Rate 20 Blood Pressure 152/67 H 144/61 H 152/65 H Pulse Oximetry 100 Oxygen Delivery Method Room Air 06/25/25 17:31 06/25/25 21:32 Temperature 98.0 F Pulse Rate 63 68 Respiratory Rate 20 Blood Pressure 151/60 H 151/60 H Pulse Oximetry 95 Oxygen Delivery Method BMI result Body Mass Index 25.8 Const Other: The patient is an 85-year-old man who was awake and alert, pleasant and cooperative. He does not appear acutely ill. HENMT Other: The face is symmetrical. ?Mucous membranes moist. Eyes Other: Pupils are round equal, conjunctivae are clear, extraocular movements intact Neck Neck: Yes normal visual inspection, Yes full ROM and Yes no JVD Resp Effort & Inspection: normal respiratory effort Auscultation: clear to auscultation bilaterally Cardio Rate: regular rate Rhythm: regular rhythm Heart sounds: S1 normal heart sound present and S2 normal heart sound present GI Other: Abdomen is soft and nontender Skin Other: The skin is dry and unremarkable Neuro Other: The patient is awake, alert, pleasant, cooperative. He does not appear in any obvious distress. Pupils are round equal, extraocular movements are intact, the face is symmetrical, speech is clear and appropriate, he moves his extremities symmetrically and appropriately seems grossly neurologically intact without focal deficits. Extrem Other: There is no calf swelling or tenderness. No asymmetry. No peripheral edema. Medications Administered Discontinued Medications Generic Name Dose Route Start Last Admin Trade Name Elayne PRN Reason Stop Dose Admin Lactated Ringer's 1,000 mls @ 999 mls/hr 06/25/25 19:30 06/25/25 21:31 Lr IV 06/25/25 20:30 Infused .Q1H1M STEPHANIE Infusion Medical Decision Making Medical Decision Making [facility] Narrative: The patient is a very pleasant 85-year-old male who was on medication for hypothyroidism but otherwise seems to be fairly healthy and does not seem to have a significant amount of past medical history. Today after sitting in a chair for a long time he felt lightheaded when he stood up. He felt near syncopal. An ambulance was called and he was brought to the hospital. He did not have any significant associated symptoms with this episode. There was no headache, chest pain, shortness of breath, abdominal pain, nausea, vomiting. He has not had any black stools that he is aware of. Clinically the patient looks quite well. The only significant finding is that his blood pressure was mostly in the 50s. He is not on any medications that affect his heart rate. We 1 old EKG which is a photo copy of EKG from June of 2024. Sinus bradycardia at a rate of 54 was present at that EKG. I suspect the patient has some degree of a chronic bradycardia. His EKG today does not show any other concerning findings except for the bradycardia. The patient was given 1 L of fluid. Labs were checked and are unremarkable. He was observed for several hours. During this time he looked well. No recurrence of symptoms. He was not orthostatic. I think he may be discharged to follow up with his regular doctor. Lab Data 06/25/25 18:12 06/25/25 18:12 Labs: Lab Results 06/25/25 06/25/25 Range/Units 18:12 21:07 WBC 9.6 (4.8-10.8) X10*3/uL RBC 4.90 (4.60-5.80) X10*6/uL Hgb 14.3 (14.0-18.0) g/dl Hct 44.5 (42.0-52.0) % MCV 90.8 (80.0-98.0) fL MCH 29.2 (27.0-33.0) pg MCHC 32.1 (31.0-36.0) g/dl RDW 14.0 (11.0-16.0) % Plt Count 258 (160-400) X10*3/uL MPV 10.3 (9.4-12.4) fL Immature Gran % (Auto) 0.3 (0.0-0.4) % Neut % (Auto) 61.0 (45-73) % Lymph % (Auto) 26.4 (20-40) % [place] % (Auto) 10.2 (2-11) % Eos % (Auto) 1.6 (0-4) % Baso % (Auto) 0.5 (0-2) % Lymph # (Auto) 2.5 (1.2-4.9) X10*3/uL [place] # (Auto) 1.0 (0.1-1.2) X10*3/uL Eos # (Auto) 0.2 (0.0-0.4) X10*3/uL Baso # (Auto) 0.1 (0.0-0.2) X10*3/uL Abs Immat Gran (auto) 0.03 (0.00-0.03) X10*3/uL Absolute Neuts (auto) 5.8 (2.0-8.3) x10*3/uL Absolute Nucleated RBC 0.000 (0.0-0.012) X10*3/uL Nucleated RBC % (auto) 0.0 (0.0-0.2) /100WBC Sodium 140 (135-145) mmol/L Potassium 5.0 D (3.3-5.1) mmol/L Chloride 110 H (96-108) mmol/L Carbon Dioxide 22 (22-29) mmol/L Anion Gap 13 (12-20) BUN 22 H (9-16) mg/dL Creatinine 1.40 (0.5-1.4) mg/dL Estim Creat Clear Calc 37.8 Estimated GFR 48 Random Glucose 102 (60-115) mg/dL Calcium 9.2 (8.4-10.2) mg/dL Magnesium 2.1 (1.6-2.6) mg/dL Total Bilirubin 0.5 (0.0-1.0) mg/dL AST 21 (5-37) U/L ALT 7 (0-40) U/L Alkaline Phosphatase 81 (39-117) U/L Troponin I High Sens 25.2 (<3.5-35.0) ng/L C-Reactive Protein 0.22 (< or = 0.50) mg/dL NT-Pro-B Natriuret Pep 305.6 H (<300) pg/mL Total Protein 7.4 (6.5-8.0) g/dL Albumin 4.0 (3.5-5.0) g/dL TSH 7.68 H (0.32-4.0) uIU/mL Urine Color Yellow Urine Appearance Clear Urine pH 5.5 (5.0-9.0) Ur Specific [place] 1.020 (1.005-1.025) Urine Protein Negative (Neg-Trace) mg/dL Urine Glucose (UA) Negative (Negative) mg/dL Urine Ketones Trace (Negative) mg/dL Urine Blood Negative (Negative) Urine Nitrite Negative (Negative) Ur Leukocyte Esterase Negative (Negative) Ethyl Alcohol < 10 mg/dL Influenza Type A (PCR) NEGATIVE (Negative) Influenza Type B (PCR) NEGATIVE (Negative) RSV RNA Qual (PCR) NEGATIVE (Negative) SARS-CoV-2 RNA (RT-PCR) NEGATIVE (Negative) Independent Interpretation I performed an independent interpretation of an: EKG Interpretation: EKG at 18:26 shows sinus bradycardia at 56 beats per minute. I do not see any definite acute ischemic changes or any other concerning findings. Discharge Plan Discharge Clinical Impression: Postural dizziness with near syncope Patient Disposition: Home, Self-Care Instructions: Lightheadedness (ED) Additional Instructions: Your testing in the emergency room seems reassuring. Perhaps you has been mildly dehydrated. You were given a bag of IV fluids. The only interesting finding was that your heart rate is slightly on the slow side. Please continue your regular medications. Please make sure that you were eating and drinking well. Please contact your primary care doctor's office in the morning for a follow up appointment soon to discuss this episode further. Return to the emergency room if significantly worse. Prescriptions: No Action levothyroxine 100 mcg tablet 100 mcg PO DAILY Qty: 90 0RF cholecalciferol (vitamin D3) 25 mcg (1,000 unit) capsule 25 mcg PO DAILY cyanocobalamin (vitamin B-12) 1,000 mcg capsule 1,000 mcg PO DAILY omeprazole 20 mg capsule,delayed release(DR/EC) 20 mg PO DAILY Qty: 30 2RF Referrals: Po,Zenon Edwards MD [Primary Care Provider, Internal Medicine] Interventions: ED Discharge Assessment Last Done: 06/25/25 21:32 Discharge Date/Time: 06/25/25 21:37 Print Language: Nepali
[2025-06-25 18:18] LABS: MANUAL DIFF FLAG NO
[2025-06-25 18:19] LABS: Hematocrit 44.5 % (42.0-52.0); Hemoglobin 14.3 g/dl (14.0-18.0); Imm Gran Abs Auto 0.03 X10*3/uL (0.00-0.03); Imm Gran Pct Auto 0.3 % (0.0-0.4); Lymphocytes Absolute Auto 2.5 X10*3/uL (1.2-4.9); Mean Corpuscular HGB Conc 32.1 g/dl (31.0-36.0); Mean Corpuscular Hemoglobin 29.2 pg (27.0-33.0); Mean Corpuscular Volume 90.8 fL (80.0-98.0); NRBC Abs Auto 0.000 X10*3/uL (0.0-0.012); NRBC Pct Auto 0.0 /100WBC (0.0-0.2); Platelet Count 258 X10*3/uL (160-400); Red Blood Count 4.90 X10*6/uL (4.60-5.80); White Blood Count 9.6 X10*3/uL (4.8-10.8)
--- NOTE | 2025-06-25 18:24 | PC.NURSE ---
patient had another BM that was noted to be black/red and tarry. patient cleaned up, jose alejandro care done. new pads and linens. patient repositioned. patient resting quietly at this time.
[2025-06-25 18:34] LABS: Alanine Aminotransferase 7 U/L (0-40); Albumin Level 4.0 g/dL (3.5-5.0); Alkaline Phosphatase 81 U/L (39-117); Anion Gap 13 (12-20); Aspartate Amino Transferase 21 U/L (5-37); Blood Urea Nitrogen 22 mg/dL (9-16); Calcium 9.2 mg/dL (8.4-10.2); Carbon Dioxide 22 mmol/L (22-29); Chloride 110 mmol/L (96-108); Creatinine Clr Calc Pharmacy 37.8; Estimated Glomerular Filt Rate 48; Potassium 5.0 mmol/L (3.3-5.1); Sodium 140 mmol/L (135-145); Total Protein 7.4 g/dL (6.5-8.0)
[2025-06-25 18:37] LABS: NT Pro B Type Natriuretic Pept 305.6 pg/mL (<300)
[2025-06-25 18:41] LABS: Troponin-I High Sensitivity 25.2 ng/L (<3.5-35.0)
[2025-06-25 18:47] LABS: Magnesium 2.1 mg/dL (1.6-2.6)
[2025-06-25 18:55] LABS: Thyroid Stimulating Hormone 7.68 uIU/mL (0.32-4.0)
[2025-06-25 19:07] LABS: Resp Syncy Virus RNA Qual PCR NEGATIVE (Negative); SARS COV2 PCR INHOUSE NEGATIVE (Negative)
[2025-06-25] MEDS: Lactated Ringers 1,000 ML 999 ML IV (20:10)
[2025-06-25 21:15] LABS: Appearance Urine Clear; Glucose Urine UA Negative (Negative); PH 5.5 (5.0-9.0); Specific Gravity - Urine 1.020 (1.005-1.025)
[2025-06-25 21:32] VITALS: BP 151/60; PULSE 68; RESP 20; TEMP 36.7; O2SAT 95
== END 2025-06-25 21:37 | disposition home or self-care (01) ==
PROVIDERS: Emergency Provider Emergency Medicine; PCP Internal Medicine
DX: R42 Dizziness and giddiness (principal); R55 Syncope and collapse; R00.1 Bradycardia, unspecified; Z03.818 Encounter for observation for suspected exposure to other biological agents ruled out; E03.9 Hypothyroidism, unspecified; K21.9 Gastro-esophageal reflux disease without esophagitis; Z79.899 Other long term (current) drug therapy
CPT/HCPCS: 36415; 71046; 80053; 80307; 81003; 83735; 83880; 84443; 84484; 85025; 86140; 87637; 93005; 96360; 99284; 99285; J7120

== ENCOUNTER → 2025-06-25 17:27 | Outpatient (BNV) | payer MEDICARE, SELFPAY | PROVIDERS: Emergency Provider Emergency Medicine; PCP Internal Medicine; Visit Provider Internal Medicine Cardiovascular Disease | DX: R00.1 Bradycardia, unspecified (principal) | CPT/HCPCS: 93010 ==

== ENCOUNTER → 2025-06-25 18:02 | Outpatient (BNV) | payer MEDICARE, SELFPAY | PROVIDERS: Emergency Provider Emergency Medicine; PCP Internal Medicine; Visit Provider Radiology Diagnostic Radiology | DX: R55 Syncope and collapse (principal) | CPT/HCPCS: 71046 ==

== ENCOUNTER 2025-06-28 10:16 | Emergency (ER) | payer MEDICARE, SELFPAY ==
--- NOTE | ~2025-06-28 | CT_ITS ---
EXAMINATION: CT ANGIOGRAM CHEST, ABDOMEN, AND PELVIS CLINICAL INFORMATION: possible dissection COMPARISON: None available. TECHNIQUE: Multiple axial images were obtained through the chest, abdomen, and pelvis after the administration of 70 mL of Omnipaque 350 intravenous contrast. Extensive vascular post-processing including two-dimensional and three-dimensional reformatted images were created and reviewed on an independent workstation. This CT examination was performed using dose optimization techniques as appropriate, variously including the following: *Automated exposure control *Adjustment of mA and/or kV according to patient size (this includes techniques or standardized protocols for targeted exams where dose is matched to indication/reason for exam; i.e. extremities or head) *Use of iterative reconstruction technique FINDINGS: VASCULAR: There is mild multifocal atherosclerotic calcifications. There is no aneurysm. There is no intimal flap to suggest a dissection. There is no large mural thrombus. There is focal narrowing at the origin of the celiac artery. The lumen measures 2.5 mm. Distally, the lumen measures 5.9 mm consistent with 58% narrowing. LUNGS: There is mild to moderate round glass density in the dependent portions of the lung, right greater than left. MEDIASTINUM: There is a sliding hiatal hernia containing stomach fundus. The esophagus is fluid-filled. There is a lymph node anterior to scot measuring 12 mm short axis. Axilla: There is no adenopathy. LIVER, GALLBLADDER, AND BILIARY TREE: The liver is normal in size, shape, and attenuation. No focal hepatic lesion or biliary ductal dilatation is present. The gallbladder is unremarkable with no evidence of radiopaque gallstones, gallbladder wall thickening, or obvious pericholecystic inflammatory changes. PANCREAS: Fatty infiltration SPLEEN: Unremarkable. ADRENAL GLANDS: Unremarkable. KIDNEYS AND URETERS: There are parapelvic cysts on the left. There is mild renal cortical thinning. There are no stones and no hydronephrosis. BLADDER: There is an 18 x 30 mm (AP by cc) wide mouth diverticulum involving the anterior right minutes lower bladder wall. GASTROINTESTINAL TRACT: Numerous pseudodiverticula are present in the descending and sigmoid colon. There is mild stool in the rectum. The appendix is within normal limits. Small sliding hiatal hernia involves a gastric fundus. ABDOMINAL WALL: Bilateral inguinal hernias containing adipose tissue. Herniations pass medial to the epigastric vessels. LYMPH NODES: Normal. PELVIC VISCERA: Prostate is mildly enlarged. OSSEOUS STRUCTURES: Flowing anterior osteophytes are present in the thoracic spine with minimal disc space narrowing. There is a Schmorl's node in the posterior inferior endplate of T11. There are mild degenerative changes in the hip joints with marginal osteophytes involving acetabulum and femoral heads. CT/CT angio abdomen pelvis IMPRESSION: No dissection or aneurysm. There is a mildly enlarged precarinal lymph node measuring 11 mm short axis. This could be hyperplastic or reactive in nature, a malignant in etiology is not ruled out. Consider follow-up CT chest without contrast in 3 months. There is a sliding hiatal hernia involving gastric fundus. The esophagus is distended with fluid which probably related to gastroesophageal reflux and presbyesophagus. There are groundglass densities in the dependent portions of the lungs, right greater than left. This probably related to atelectasis, correlate for signs symptoms of pneumonia. 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 Diverticulosis of the descending and sigmoid colon. There is a large amount stool in the rectum. Fleischner guidelines were followed. Electronically signed by: Wesly Kimball MD 06/28/2025 11:22 AM EST
--- NOTE | ~2025-06-28 | XR_ITS ---
EXAMINATION: XR CHEST CLINICAL INFORMATION: weakness COMPARISON: June 25, 2025 TECHNIQUE: Portable AP supine view of the chest was obtained. FINDINGS: Excluded right hemithorax. Prominence of the interstitial markings with indistinct margins in the perihilar region. Cardiomediastinal silhouette size is normal. No pneumothorax. Multilevel spondylosis, thoracic spine. XR/XR chest 1V IMPRESSION: Pulmonary edema versus acute small airway inflammatory process. Electronically signed by: Eduardo Bush MD 06/28/2025 11:09 AM [facility]
[2025-06-28 10:19] VITALS: BP 72/48; PULSE 70; O2SAT 99
--- NOTE | 2025-06-28 10:19 | ECG_ITS ---
Test Reason : cp/hypotensive Blood Pressure : */* mmHG Vent. Rate : 77 BPM Atrial Rate : 77 BPM P-R Int : 176 ms QRS Dur : 150 ms QT Int : 430 ms P-R-T Axes : 71 -56 44 degrees QTcB Int : 486 ms Normal sinus rhythm Right bundle branch block Left anterior fascicular block Bifascicular block Septal infarct , age undetermined Lateral injury pattern ACUTE TX / STEMI Abnormal ECG When compared with ECG of 25-Jun-2025 18:26, (RBBB and left anterior fascicular block) is now Present Septal infarct is now Present Criteria for Inferior infarct are no longer Present Referred By: Generic ED Physician Electronically Signed By: Michael Saucedo
--- NOTE | 2025-06-28 10:23 | ED.GENADULT ---
HPI - General Adult General Chief complaint: Syncope Stated complaint: WEAKNESS SYNCOPAL EPISODE Time Seen by Provider: 06/28/25 10:23 Source: patient and EMS Mode of arrival: EMS Limitations: no limitations History of Present Illness ED Provider: Gary HPI narrative: 85-year-old male with a history of hypertension and hyperlipidemia presented with chest pain around 09:00, I reviewed 12 lead from EMS and he had ST elevation in the lateral leads as well as right bundle-branch block, our ECG revealed anterior lateral ST-elevation with reciprocal changes, patient noted to be hypotensive, he due to intensity of the pain he was somewhat of a limited historian he did endorse history of high blood pressure and hyperlipidemia states nonsmoker nondrinker no drug use, I also spoke to Ham his son who called and updated that father was in the hospital on concern for heart attack and he is going to [facility] after stabilization. Patient is reported to be full code but EMS Related Data Home Medications ?Medication ?Instructions ?Recorded ?Confirmed cholecalciferol (vitamin D3) 25 25 mcg PO DAILY 05/28/20 05/07/25 mcg (1,000 unit) capsule cyanocobalamin (vitamin B-12) 1,000 mcg PO DAILY 05/28/20 05/07/25 1,000 mcg capsule Previous Rx's ?Medication ?Instructions ?Recorded omeprazole 20 mg capsule,delayed 20 mg PO DAILY #30 caps 06/22/24 release levothyroxine 100 mcg tablet 100 mcg PO DAILY #90 tabs 05/18/25 Allergies Allergy/AdvReac Type Severity Reaction Status Date / Time lisinopril Allergy Unknown hyperkalemi Verified 06/28/25 10:28 a Review of Systems Review of Systems: Yes Unobtainable due to mental condition [facility] Past Medical History Medical History Pernicious anemia Post herpetic neuralgia GERD (gastroesophageal reflux disease) Melanoma Hypertension Vitamin D deficiency Gout Hypothyroid Surgical History History of tonsillectomy Family History Family History Father No problems noted. Mother Diabetes Hypertension CVD (cardiovascular disease) Social History Social History Housing: House Alcohol intake: current Alcohol intake frequency: 0-2 drinks per day Comment: once a week 1 drink Patient Tobacco Use Status: Never used Tobacco e-Cigarette/Vaping Use: Never Used Second Hand Smoke Exposure: No service: No Current occupational status: retired Cognitive needs: No Hearing needs: Yes Vision needs: Yes Physical Exam ED Exam Exam: Patient is sick appearing Moaning, answering some questions, no cranial nerve deficits 2 through 12 noted, moving upper and lower extremities symmetrically He is tachypneic Pulses present bilateral upper extremities and bilateral femorals S1-S2 did not appreciate distant heart sounds or murmur No lower extremity edema Abdominal exam without pulsatile masses Vital Signs: Vital Signs - 24 hr 06/28/25 10:25 06/28/25 10:35 06/28/25 10:36 Pulse Rate 76 75 77 Respiratory Rate 18 Blood Pressure 95/40 L 78/59 L 78/49 L Pulse Oximetry 97 Oxygen Delivery Method Nasal Cannula BMI result Body Mass Index 26.5 Medications Administered Generic Name Dose Route Start Last Admin Trade Name Freq PRN Reason Stop Dose Admin Norepinephrine Bitartrate 8 mg in 250 mls @ 0 mls/hr 06/28/25 10:30 06/28/25 10:35 Levophed IVCONT 0.05 mcg/kg/min .Q0M STEPHANIE 8.08 mls/hr Protocol Administration Per Protocol Procedures Ultrasound ED POC Ultrasound: EMERGENCY ULTRASOUND REPORT?Point of Care Cardiac (Echo-Focus), images I locally stored Emergent Cardiac for Indication: Views Used: Parasternal long, parasternal short, 4 chamber, subxiphoid, IVC Pericardial Effusion/Tamponade Findings: Global LV Fxn: Fairly preserved with likely some focal findings of decreased squeeze of the left ventricle/septum IVC Dilation and Resp Variation: No pericardial effusion, no RV strain, no aortic root dilation Medical Decision Making Medical Decision Making MDM Narrative: 11:08 AM 06/28/2025 (Dr. Isaiah Vega): At the time of this note patient is already out of the emergency department as a transfer to [facility]. Patient presented 10:16, sudden onset of chest pain,syncope x2 with EMS noted hypotension, which raise suspicion for aortic dissection, bedside ultrasound without pericardial effusion however and no RV strain and no aortic root dilation, he already received IV fluids via EMS was still hypotensive, pacer pads were placed and Levophed was initiated, case discussed with Dr. Saucedo, confirmed concern for ST-elevation myocardial infarction, agrees with quick CT angio to make sure no flaps before initiating of heparin, Brilinta and aspirin, once I confirmed there were no obvious flaps on CT angio patient was given heparin and aspirin he was not able to take Brilinta, he was still hypotensive I adjusted his Levophed 0.5 mics per kg per minute and verbally provider order to EMS to increase to 1mcg/kg/min. I did discuss care with the son and also discussed that father is very sick he is having a heart attack and low blood pressure which may increase his mortality -Patient required hemodynamic stabilization before going to CT scan and then after CT scan he required additional re-evaluation and stabilization before being placed on EMS gurney for transfer -Dr. Saucedo updated of pt's transfer condition as well as inability to take brilinta Differential Diagnosis Differential Diagnoses: The differential diagnosis associated with the presentation includes (STEMI, NSTEMI, aortic dissection, PE with RV strain) Admission/Observation Consideration of admission/observation: Escalation of care including admission/observation considered Consult Healthcare Provider Management of the patient was discussed with: Articulation Officer (Dr. Saucedo) Lab Data MDM Lab Attestation statement: I reviewed the patient's lab results. Independent Interpretation I performed an independent interpretation of an: EKG (ST elevation ro[place]ina-lateral leads and inferior ST depression with new RBBB 77BPM), Plain X-Ray (No pneumothorax, no mediastinal widening) and CT Scan (No obvious aortic flap) Radiology Impression Discussion of test interpretation with radiology: I have reviewed the radiologist's reading. ( XR/XR chest 1V IMPRESSION: Pulmonary edema versus acute small airway inflammatory process.) Independent Historian Clinical information obtained from an independent historian. History obtained from or confirmed by: EMS and Other (Son) Chronic Conditions Patient?s care impacted by: Hypertension Critical Care Time Critical Care Time Critical Care Time: Yes Total Critical Care Time: 45 Attestation: Time is exclusive of separately billable procedures. Time includes: direct patient care, patient reassessment, coordination of patient care, interpretation of data (laboratory data, pulse oximetry, arterial blood gases and chest xrays), review of patient's medical records, medical consultation and documentation of patient care. Procedures excluded from critical care time: central intravenous line placement and electrocardiography. 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
[2025-06-28 10:25] VITALS: BP 95/40; PULSE 76; RESP 18; O2SAT 97; BMI 26.5
[2025-06-28 10:35] VITALS: BP 78/59; PULSE 75
[2025-06-28 10:36] VITALS: BP 78/49; PULSE 77
[2025-06-28 10:38] VITALS: BP 97/55; PULSE 78
[2025-06-28 10:45] LABS: Hematocrit 42.8 % (42.0-52.0); Hemoglobin 14.0 g/dl (14.0-18.0); Imm Gran Abs Auto 0.01 X10*3/uL (0.00-0.03); Imm Gran Pct Auto 0.1 % (0.0-0.4); MANUAL DIFF FLAG SCAN; Mean Corpuscular HGB Conc 32.7 g/dl (31.0-36.0); Mean Corpuscular Hemoglobin 29.8 pg (27.0-33.0); Mean Corpuscular Volume 91.1 fL (80.0-98.0); NRBC Abs Auto 0.000 X10*3/uL (0.0-0.012); NRBC Pct Auto 0.0 /100WBC (0.0-0.2); Platelet Count 265 X10*3/uL (160-400); Red Blood Count 4.70 X10*6/uL (4.60-5.80); SCAN SMEAR FLAG 1; White Blood Count 12.3 X10*3/uL (4.8-10.8)
[2025-06-28 10:49] LABS: Lymphocytes Absolute Auto 7.0 X10*3/uL (1.2-4.9)
[2025-06-28] MEDS: iohexoL 350 MG/ML 100 ML INFUS..BTL IV (10:55)
[2025-06-28 11:02] LABS: Alanine Aminotransferase 8 U/L (0-40); Albumin Level 3.0 g/dL (3.5-5.0); Alkaline Phosphatase 73 U/L (39-117); Anion Gap 14 (12-20); Aspartate Amino Transferase 29 U/L (5-37); Blood Urea Nitrogen 19 mg/dL (9-16); Calcium 8.6 mg/dL (8.4-10.2); Carbon Dioxide 13 mmol/L (22-29); Chloride 112 mmol/L (96-108); Creatinine Clr Calc Pharmacy 39.7; Estimated Glomerular Filt Rate 47; Magnesium 2.3 mg/dL (1.6-2.6); Potassium 3.9 mmol/L (3.3-5.1); Sodium 135 mmol/L (135-145); Total Protein 6.7 g/dL (6.5-8.0)
--- NOTE | 2025-06-28 11:05 | PC.NURSE ---
pt to ct scan and in and out of consciousness at times, was breathing and had a pulse throughout, nor epi titrated up to .11 mcg/kg/min 79.5 kg. report to ems and placed on ems stretcher and ems left departmant at 1059, pads on pt and zoll, fentanyl given but chest discomfort unchanged, skin pale lips and fingers cyanotic and pale, on 4 lpm nc with spo2 upper 90's, 20 and 18 r arm access, 1 l ns bolus total infused, medicated as ordered, unable to take brilanta but took the rest
[2025-06-28 11:08] LABS: NT Pro B Type Natriuretic Pept 596.5 pg/mL (<300)
[2025-06-28 11:11] LABS: Troponin-I High Sensitivity 67.3 ng/L (<3.5-35.0)
[2025-06-28 11:21] LABS: Resp Syncy Virus RNA Qual PCR NEGATIVE (Negative); SARS COV2 PCR INHOUSE NEGATIVE (Negative)
[2025-06-28 11:26] VITALS: BP 78/56; PULSE 78; RESP 18; TEMP -17.7; TEMP 0; O2SAT 97
--- NOTE | 2025-06-28 15:44 | PM.CNCAR ---
History of Present Illness History of Present Illness Date of Service: 06/28/25 Requesting physician: Isaiah Vega Chief complaint: WEAKNESS SYNCOPAL EPISODE Narrative: 85-year-old gentleman who we have been asked to see urgently for weakness and syncopal episode. He is hypotensive in 70s. His EKGs showing anterior and lateral ST-elevation with right bundle-branch block. He is complaining of chest pressure. He is very hard of hearing and quite confused currently. There is some concern that he may have dissection and is going through CT scan emergently to. No significant previous history in the chart other than hypothyroidism, hypertension and gastroesophageal reflux disease. He also has chronic kidney disease. The patient was assessed and urgently transferred to [facility] for cardiac catheterization. He was given 5000 of heparin and full-dose aspirin. He was confused and could not take Brilinta later on and we will use cangrelor in the cardiac catheterization lab. [facility] Past Medical History Medical History Pernicious anemia Post herpetic neuralgia GERD (gastroesophageal reflux disease) Melanoma Hypertension Vitamin D deficiency Gout Hypothyroid Family History Family History Father No problems noted. Mother Diabetes Hypertension CVD (cardiovascular disease) Surgical History Surgical History History of tonsillectomy Social History Social History Housing: House Alcohol intake: current Alcohol intake frequency: 0-2 drinks per day Comment: once a week 1 drink Patient Tobacco Use Status: Never used Tobacco e-Cigarette/Vaping Use: Never Used Second Hand Smoke Exposure: No Advance Directives: No Advance Directives Information Provided: No service: No Current occupational status: retired Cognitive needs: No Hearing needs: Yes Vision needs: Yes Meds Allergies Allergy/AdvReac Type Severity Reaction Status Date / Time lisinopril Allergy Unknown hyperkalemi Verified 06/28/25 10:28 a Home Medications ?Medication ?Instructions ?Recorded ?Confirmed ?Last Taken ?Type cholecalciferol (vitamin D3) 25 25 mcg PO DAILY 05/28/20 05/07/25 Unknown History mcg (1,000 unit) capsule cyanocobalamin (vitamin B-12) 1,000 mcg PO DAILY 05/28/20 05/07/25 Unknown History 1,000 mcg capsule Physical Exam Vital Signs: Vital Signs: Last Vital Signs Temp 0 F L 06/28/25 11:26 Pulse 78 06/28/25 11:26 Resp 18 06/28/25 11:26 BP 78/56 L 06/28/25 11:26 Pulse Ox 97 06/28/25 11:26 O2 Del Method Nasal Cannula 06/28/25 11:26 O2 Flow Rate 4 06/28/25 11:26 Oxygen Flow Rate 2 06/28/25 10:25 BMI result Body Mass Index 26.5 GENERAL APPEARANCE: Ill-appearing. Confused. SKIN: no suspicious lesions, warm and dry. HEART: no murmurs, regular rate and rhythm. LUNGS: clear to auscultation bilaterally. ABDOMEN: soft, nontender. EXTREMITIES: Cold. Both feet cyanotic. Objective Labs and Meds 06/28/25 10:39 06/28/25 10:39 Lab results: Laboratory Results - last 24 hr 06/28/25 10:39 WBC 12.3 H RBC 4.70 Hgb 14.0 Hct 42.8 MCV 91.1 MCH 29.8 MCHC 32.7 RDW 13.9 Plt Count 265 MPV 10.3 Immature Gran % (Auto) 0.1 Neut % (Auto) 30.3 L Lymph % (Auto) 57.0 H Granite % (Auto) 9.8 Eos % (Auto) 2.3 Baso % (Auto) 0.5 Lymph # (Auto) 7.0 H Granite # (Auto) 1.2 Eos # (Auto) 0.3 Baso # (Auto) 0.1 Abs Immat Gran (auto) 0.01 Absolute Neuts (auto) 3.7 Absolute Nucleated RBC 0.000 Nucleated RBC % (auto) 0.0 Smear Tech's Comments VERIFIED Sodium 135 Potassium 3.9 D Chloride 112 H Carbon Dioxide 13 L Anion Gap 14 BUN 19 H Creatinine 1.42 H Estim Creat Clear Calc 39.7 Estimated GFR 47 Random Glucose 117 H Calcium 8.6 D Magnesium 2.3 Total Bilirubin 0.5 AST 29 ALT 8 Alkaline Phosphatase 73 Troponin I High Sens 67.3 H D NT-Pro-B Natriuret Pep 596.5 H Total Protein 6.7 Albumin 3.0 L Influenza Type A (PCR) NEGATIVE Influenza Type B (PCR) NEGATIVE RSV RNA Qual (PCR) NEGATIVE SARS-CoV-2 RNA (RT-PCR) NEGATIVE Blood Type O Positive Antibody Screen NEGATIVE Imaging Radiologist's impression: Impressions Chest X-Ray 06/28/25 10:37 IMPRESSION: Pulmonary edema versus acute small airway inflammatory process. Electronically signed by: Eduardo Bush MD 06/28/2025 11:09 AM EST RP Abdomen/Pelvis CTA 06/28/25 10:46 IMPRESSION: No dissection or aneurysm. There is a mildly enlarged precarinal lymph node measuring 11 mm short axis. This could be hyperplastic or reactive in nature, a malignant in etiology is not ruled out. Consider follow-up CT chest without contrast in 3 months. There is a sliding hiatal hernia involving gastric fundus. The esophagus is distended with fluid which probably related to gastroesophageal reflux and presbyesophagus. There are groundglass densities in the dependent portions of the lungs, right greater than left. This probably related to atelectasis, correlate for signs symptoms of pneumonia. 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 Diverticulosis of the descending and sigmoid colon. There is a large amount stool in the rectum. Fleischner guidelines were followed. Electronically signed by: Wesly Kimball MD 06/28/2025 11:22 AM EST RP Chest CTA 06/28/25 10:46 IMPRESSION: No dissection or aneurysm. There is a mildly enlarged precarinal lymph node measuring 11 mm short axis. This could be hyperplastic or reactive in nature, a malignant in etiology is not ruled out. Consider follow-up CT chest without contrast in 3 months. There is a sliding hiatal hernia involving gastric fundus. The esophagus is distended with fluid which probably related to gastroesophageal reflux and presbyesophagus. There are groundglass densities in the dependent portions of the lungs, right greater than left. This probably related to atelectasis, correlate for signs symptoms of pneumonia. 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 Diverticulosis of the descending and sigmoid colon. There is a large amount stool in the rectum. Fleischner guidelines were followed. Electronically signed by: Wesly Kimball MD 06/28/2025 11:22 AM [facility] Assessment and Plan (1) ST elevation myocardial infarction (STEMI) of anterior wall: Status: Acute (2) Cardiogenic shock: Status: Acute Plan [age] year gentleman presenting with weakness and hypotension. He has anterior ST elevations on EKG along with right bundle-branch block. Anterior wall ID with right bundle-branch block usually if significant size proximal LAD occlusion. He is in shock currently. Agree with Levophed. Unfortunately he was unable to get Brilinta and we will use cangrelor in the cardiac catheterization lab. We have arranged a room for him in cardiac catheterization lab and he is emergently being transferred from the ER to the cardiac catheterization lab. Further management will be done at [facility]. Procedures Date of Service Date of Service: 06/28/25
--- NOTE | 2025-07-01 12:08 | PC.NURSE ---
norepinephrine infusion was infusing when the pt left at 1126 report to [facility] and they continued thye infusio
== END 2025-06-28 10:59 | disposition short-term general hospital (02) ==
PROVIDERS: Physician Assistant Medical; Emergency Provider Emergency Medicine
DX: I21.09 ST elevation (STEMI) myocardial infarction involving other coronary artery of anterior wall (principal); R57.0 Cardiogenic shock; E78.5 Hyperlipidemia, unspecified; I45.10 Unspecified right bundle-branch block; D64.9 Anemia, unspecified; B02.29 Other postherpetic nervous system involvement; R06.02 Shortness of breath; K21.9 Gastro-esophageal reflux disease without esophagitis; E55.9 Vitamin D deficiency, unspecified; I10 Essential (primary) hypertension; E03.9 Hypothyroidism, unspecified; Z03.818 Encounter for observation for suspected exposure to other biological agents ruled out; Z51.81 Encounter for therapeutic drug level monitoring; Z79.899 Other long term (current) drug therapy
CPT/HCPCS: 71045; 71275; 74174; 80053; 83735; 83880; 84484; 85025; 86850; 86900; 86901; 87637; 93005; 96365; 96366; 96367; 96375; 99285; J1644; J2405; J3010; Q9967

== ENCOUNTER → 2025-06-28 10:23 | Outpatient (BNV) | payer MEDICARE, SELFPAY | PROVIDERS: Emergency Provider Emergency Medicine; Visit Provider Radiology Diagnostic Radiology | DX: R53.1 Weakness (principal) | CPT/HCPCS: 71045; 71275; 74174 ==

== ENCOUNTER → 2025-06-28 10:55 | Outpatient (BNV) | payer MEDICARE, SELFPAY | PROVIDERS: Emergency Provider Emergency Medicine; Visit Provider Internal Medicine Cardiovascular Disease | DX: I21.09 ST elevation (STEMI) myocardial infarction involving other coronary artery of anterior wall (principal); R57.0 Cardiogenic shock | CPT/HCPCS: 93010; 99284 ==

== ENCOUNTER → 2025-06-29 23:59 | Outpatient (BNV) | payer MEDICARE, SELFPAY | PROVIDERS: Visit Provider Internal Medicine Cardiovascular Disease | DX: I21.09 ST elevation (STEMI) myocardial infarction involving other coronary artery of anterior wall (principal) | CPT/HCPCS: 33967; 92928; 93460; 99152; 99153 ==